=== PATIENT | female | born 1985 | race Caucasian/White ===

== ENCOUNTER 2024-05-16 08:23 | Day surgery (SDC) | payer BC, SELFPAY ==
[2024-05-16] VITALS (21 sets, daily range): BP systolic 93–145; BP diastolic 66–100; PULSE 77–98; RESP 12–18; TEMP 36.1–36.5; O2SAT 87–98; BMI 40.4
[2024-05-16] MEDS: LACTATED RINGERS 1000 ML 1,000 ML 100 ML IV ×2 (08:30→13:36)
[2024-05-16] MEDS: SODIUM CHLORIDE 0.9 % (FLUSH) 10 ML SYRINGE IVF ×2 (08:43→21:12)
[2024-05-16 08:50] LABS: Ur HCG Qualitative* Negative (Negative)
[2024-05-16 09:15] LABS: Hemoglobin* 14.1 gm/dL (12.0-16.0)
--- NOTE | 2024-05-16 10:06 | W.ANESCHARGE ---
Anesthesia Charges Start Date/Time Anesthesia Start Date: 05/16/24 Anesthesia Start Time: 11:51 Stop Date/Time Anesthesia Stop Date: 05/16/24 Anesthesia Stop Time: 14:33
--- NOTE | 2024-05-16 12:07 | W.PM.H&PU ---
History & Physical Update History & Physical Update H&P Reviewed and patient assessed: No changes noted
[2024-05-16] MEDS: CEFAZOLIN 1 GM inj 3 GM IVP (12:09)
--- NOTE | 2024-05-16 12:35 | W.PM.NB ---
Nerve Block Nerve Block Time Seen by Provider: 12:00 Date Seen: 05/16/24 Type of block requested by surgeon for post-operative analgesia: TAP Side: bilateral Time out performed: Yes Verification of patient name: Yes Verification of date of : Yes Site marking: site marked Name of person performing procedure: Serjio Continuous monitoring Was continuous monitoring of O2 sat, B/P, monitoring engineer, recorded every 15 minutes?: Yes Procedure Checklist: sterile prep, needles and gloves Ultrasound guided. Images saved: Yes Medications given in 5ml increments after negative aspiration: Marcaine %: 0.25 mL: 30 Needle gauge: 20 and Exparel mL: 10 Patient tolerated procedure well: Yes Additional comments: Needle noted between internal oblique and transversus abdominus. Local spread visualized Block Charges Block Charge (with Pro Fee): TAP Bilateral Use of Ultrasound Machine for Block: Yes- US Guidance/pain block
[2024-05-16] MEDS: FLUORESCEIN 10% INJ 500 MG IVP (13:47)
[2024-05-16] MEDS: BUPIVACAINE 0.5% 30 ML INJECTION (14:04)
[2024-05-16] MEDS: KETOROLAC 30 MG/ML inj IVP ×2 (14:13→21:11)
--- NOTE | 2024-05-16 14:28 | W.ANESCHARGE ---
Anesthesia Charges Start Date/Time Anesthesia Start Date: 05/16/24 Anesthesia Start Time: 11:51 Stop Date/Time Anesthesia Stop Date: 05/16/24 Anesthesia Stop Time: 14:33
--- NOTE | 2024-05-16 14:54 | PM.PROC ---
Procedure Note Time Seen by Provider: 14:54 Date Seen: 05/16/24 Date of procedure: 05/16/24 Will [facility] bill your pro fee for this procedure?: Yes Procedure: Preoperative diagnosis: 38-year-old 2 para 2 loose endometriosis, chronic pelvic pain and dysmenorrhea unresponsive to Mirena IUD. Postoperative diagnosis: Same Procedure: IUD removal, Total laparoscopic hysterectomy, bilateral salpingo oophorectomy, diagnostic cystoscopy. Anesthesia: General endotracheal, local Surgeon: Keyanna Andre MD Assist: Paty Mayo MD Estimated blood loss: 75 mL. IV Fluid: 1450 mL Urine output: 400 mL Drains: Harper to gravity Specimen: Uterus and bilateral ovaries and fallopian tubes to pathology. Findings: On exam under anesthesia: The uterus was anteverted, approximately 8 week size, mobile without nodularity or masses palpable. Adnexa without mass or fullness palpable. On laparoscopy: Normal uterus, tubes and ovaries. Evidence of old endometriosis in the posterior cul-de-sac. No evidence of active endometriosis. Appendix, liver and gallbladder all appeared normal. Procedure: Delma was taken to the operating room where general anesthetic was found to be adequate. She was placed in the dorsal lithotomy position and an exam under anesthesia was performed with findings stated above. She was then prepped and draped in a normal sterile manner. A Harper catheter was placed. A bivalve speculum was placed in the vaginal canal. The IUD strings were easily visualized, grasped with a ring forceps and the IUD removed without difficulty. A long Allis clamp was placed on the anterior lip of the cervix, in the uterus sounded to 9 cm. A large VCare uterine manipulator was then placed. The Allis clamp and speculum were removed from the cervix. Attention was then turned to performing the laparoscopic portion of the procedure. All incisions were infiltrated with 0.50% Marcaine prior to incising the skin. A vertical, infraumbilical 1 cm incision was made. An 11 mm trocar was then placed under direct visualization. The abdomen was then insufflated with CO2 gas to a pressure of 15 mm of mercury. Two,, pelvic ports were then placed approximately 3-4 finger breaths medial to the ischial crests. The trocar in the RLQ = 5mm, LLQ = 11mm. These were placed under direct visualization. Attention was then turned to performing the hysterectomy. Both ureters were visualized in the normal position bilaterally. The left fallopian tube was grasped and the infundibulopelvic ligament cauterized and ligated using the power seal dissecting forceps. Sequential pedicles were then made toward the cornua and the tube in ovary removed at the cornua and placed in the posterior cul-de-sac. The right fallopian tube and ovary were removed in a similar manner and also placed in the posterior cul-de-sac. removed with sequential pedicles using the dissecting, PowerSeal blunt tip dissecting forceps. The left side of the hysterectomy was performed using the PowerSeal dissecting forceps. The 1st pedicles were starting with the broad ligament that was cauterized and and bisected. In sequence show pedicles were formed to divide the utero-ovarian ligament. Then sequential pedicles were made through the broad ligament. The posterior leaf of the broad ligament was then divided and sequential pedicles carried down to the level of the VCare cup. The anterior leaf of the broad ligament was then divided down to the level of the anterior aspect of the VCare cup and a bladder flap created. The uterine vessels were then skeletonized. The uterine vessels were then cauterized and divided. Then excess tissue was cleared over the top of the VCare cup using the dissecting forceps. The right side of the hysterectomy was then performed in a similar manner. The Ligasure Valleylab pen with the spatula attachment was then used to perform the colpotomy incising around the VCare cup. The uterus, tubes and ovaries were removed via the vaginal canal and a glove with 2 Ray-Starla sponges was replaced in the vagina to maintain insufflation The vaginal cuff was then reapproximated using 2-0 V lock suture in a running manner. All the pedicles and vaginal cuff were then closely visualized and hemostasis obtained with bipolar cautery using the PowerSeal dissecting forceps or the Valleylab pen with the spatula. The the uterus was removed from the vaginal canal and sent to pathology. The Harper catheter was briefly removed. A diagnostic cystoscopy was performed using normal saline as the insufflation medium. The dome of the bladder was noted to be without injury and no evidence of any sutures from the vaginal cuff causing injury. Normal urine flow was noted through both ureteral orifices. Fluorescein IV was used to visualize the urine more easily. The Harper catheter was then replaced. Attention was then returned to the abdomen where hemostasis was verified. Bebe was applied to the vaginal cuff. The CO2 pressure decreased to 8mmHG and hemostasis verified. The fascia in the LLQ incision was approximated with 0-Vicryl suture using the Hawk Moreland fascial closure device. This was closed under direct visualization with the laparoscope. The fascia in the umbilical incision was reapproximated using 0 Vicryl on a UR 6 needle. All trocars were removed under direct visualization. CO2 gas was allowed to escape the infraumbilical port prior to its removal. All skin incisions were re-approximated using 4-0 Monocryl in a running subcuticular manner, Exofin skin adhesive gel and adhesive bandages placed. The patient tolerated this procedure well. Sponge, lap and instrument counts were correct x2 at the end of the procedure and the patient was taken to the recovery area in stable condition. The patient received 3gm IV ancef prior to the start of the procedure.
--- NOTE | 2024-05-16 19:29 | PC.NURSE ---
Arrived on the floor this afternoon after 1500. 3 lap sites CDI with glue... the patient reports no pain... post op routine continues until 2129... VS noted to be hypertensive, O2 on RA, HR upper 90's. SCDS to bilateral calfs, ice pack to medial abdomen. TOlerating a regular diet with no N/V. Has not passed gas, pires is patent and draining. Call light within reach. Belinda ALVARADO BSN
[2024-05-16] MEDS: OXYCODONE 5 MG TABLET PO (20:31)
[2024-05-16] MEDS: ACETAMINOPHEN 325 MG TABLET 650 MG PO (20:32)
[2024-05-17] MEDS: KETOROLAC 30 MG/ML inj IVP (02:48)
[2024-05-17] MEDS: OXYCODONE 5 MG TABLET PO ×2 (02:49→06:23)
[2024-05-17] MEDS: ACETAMINOPHEN 325 MG TABLET 650 MG PO (02:49)
[2024-05-17 03:00] VITALS: BP 112/71; PULSE 67; RESP 18; TEMP 36.3; O2SAT 96
--- NOTE | 2024-05-17 05:55 | PC.NURSE ---
End of shift [id number]: Pleasant and cooperative with cares. pain well managed with current regimen. 3 lap sites to abdomen secured with glue and free of any signs or symptoms of infections. Harper catheter patent, draining clear urine that is bright yellow in color due to dye injected during surgery. Denies any nausea or vomiting, tolerating food and fluids well. Patient passing flatus.
[2024-05-17 06:49] LABS: Hemoglobin* 13.2 gm/dL (12.0-16.0)
[2024-05-17 07:53] VITALS: BP 122/81; PULSE 75; RESP 16; TEMP 36.7; O2SAT 97
[2024-05-17] MEDS: SERTRALINE 50 MG TABLET PO (07:58)
--- NOTE | 2024-05-17 08:03 | PM.GYNDS1 ---
DS: Providers Provider Time Seen by Provider: 08:03 Date Seen: 05/17/24 Date of admission: 05/16/2024 Primary care physician: Not a Local Provider Admitting Clinician: Keyanna Andre MD Attending Physician on discharge: Keyanna Andre MD Date of Discharge: 05/17/24 DS: Diagnosis Discharge Diagnosis (1) Status post laparoscopic hysterectomy: Status: Acute Problem details: with bilateral salpingo-oophorectomy LEGUILLON DEBEADER-Discharge Summary Hospital Course Hospital Course Narrative: Delma is a 38 year old admitted on 05/16/2024 for scheduled total laparoscopic hysterectomy with bilateral salpingo oophorectomy and diagnostic cystoscopy to treat endometriosis and chronic pelvic pain. Indication for surgery: Endometriosis, chronic pelvic pain and severe dysmenorrhea. Intraoperative findings were notable for evidence of old endometriosis, no evidence of active endometriosis otherwise normal uterus, tubes and ovaries. She had an uncomplicated surgery. Postoperative course has been uneventful. Vitals have been stable. She has remained afebrile. Today, on postoperative day 1, she reports the pain is well controlled. She has been able to ambulate Without difficulty. She is tolerating regular diet. She is passing flatus. Harper catheter has been removed, and she is voiding without difficulty. Time Spent with Patient Time attestation: Total time spent providing and/or coordinating discharge services: LEGUILLON DEBEADER - Exam Physical Exam: Vital signs: Temp Pulse Resp BP Pulse Ox O2 Del Method 98.0 F 75 16 122/81 97 Room Air 05/17/24 07:53 05/17/24 07:53 05/17/24 07:53 05/17/24 07:53 05/17/24 07:53 05/17/24 07:53 Narrative: General: Pleasant, , well groomed woman in no acute distress. Vital signs: Included in her electronic medical record Heart: Regular rate and rhythm without gallop, rub or murmur. Chest: Clear to auscultation bilaterally. Abdomen: Soft, mildly tender throughout consistent with her postoperative state. Guarding or rebound. No CVA or flank tenderness. Normal bowel sounds throughout Incisions: All clean, dry and intact with sutures and skin adhesive gel. Extremities: SCDs in place LEGUILLON DEBEADER - DS: Data Data Completed and Pending Labs on day of discharge: Labs from last 24 hours 05/17/24 05/16/24 05/16/24 06:08 09:09 08:27 Hgb 13.2 14.1 Urine HCG, Qual Negative Blood Type O Positive Antibody Screen NEGATIVE Procedures Procedures: Procedures Operation Date: 05/16/24 09:45 Actual Procedure Side Surgeon p Total Laparoscopic Hysterectomy, Bilateral Salpingo-Oophorectomy, Diagnostic Cystoscopy, Mirena Intra-Uterine Device Removal Keyanna Andre MD Discharge Plan Discharge Disposition: Home, Self-Care Discharging Surgeon: Keyanna Andre Follow-Up Appointment: Dr. Andre, [facility], June 04 @ 10:15 am Prescriptions: New docusate sodium 100 mg Capsule 100 mg PO BID PRN (Reason: Constipation) Qty: 100 0RF oxycodone 5 mg Tablet 5 mg PO 3XD PRN (Reason: Moderate Pain) Qty: 20 0RF estradiol 0.1 mg/24 hr patch semiweekly 1 patch transdermal 2XW Qty: 24 3RF Rx Instructions: apply 1 patch for 3 days alternating with 1 patch for 4 days each week. ibuprofen 600 mg tablet 600 mg PO QID PRNQty: 30 0RF Continued vitamin B complex Tablet 1 tab PO QDAY sertraline 50 mg tablet 50 mg PO QDAY Discontinued Mirena 21 mcg/24 hr (8 yrs) 52 mg intrauterine device 1 device intrauterine ONCE Rx Instructions: as a single dose Activity Level: Other Discharge Diet: Regular Patient Instructions: Laparoscopic Hysterectomy (DC) Additional Instructions: ACTIVITY RESTRICTIONS: Nothing vaginally for 6 weeks: no tampons/intercourse No driving while taking narcotic pain medication during the day. 1-2 weeks. Lifting restriction: Maximum of 20 pounds for 4 weeks. High impact or core exercises: 4 weeks. Submerge the incisions in water (bath/pool/tohmas): 2 weeks. Off of work/school for a minimum of 4 weeks NO RESTRICTIONS for: Walking Going up/down stairs Showering Being a passenger in a motor vehicle Symptoms to report to your doctor Bleeding that is red, like a moderate period Passing clots larger than the size of a golf ball Pain not relieved by prescribed medication Fever above 100.4 degrees Fahrenheit A foul vaginal odor Decrease in urination or painful, frequent urinating Chest pain Shortness of breath Tenderness or pain with redness and/swelling in the calf(s) of your leg Follow-up Appointments: 1. [facility] 2-3 weeks for an incision check. 2. A 6 week postop visit to verify that the vaginal cuff is well-healed. Forms: Work/School Release Follow-up: Keyanna Andre MD [Staff Physician] - 06/04/24 10:15 am Provider,Not a Local [Primary Care Provider] - Discharge Orders: Discharge Order (Routine); Ordered 05/17/24 Ordered By: Keyanna Andre
[2024-05-17] MEDS: IBUPROFEN 600 MG TABLET PO (09:22)
--- NOTE | 2024-05-17 12:25 | PC.NURSE ---
Discharge: The patient discharged home with her . She was educated regarding post op infection S/S, activity, lifting restriction and education regarding transdermal patch for hormone replacement. All questions were answered. Belinda ALVARADO BSN
== END 2024-05-17 11:51 | disposition home or self-care (01) ==
LOC: OR 08:25 → MEDSURG 08:29
PROVIDERS: Visit Provider Obstetrics & Gynecology
PROC: 0UT94ZZ Resection of Uterus, Percutaneous Endoscopic Approach (ICD-10-PCS; CPT 58571; principal; 2024-05-16 09:45)
DX: N94.6 Dysmenorrhea, unspecified (principal); R10.2 Pelvic and perineal pain; G89.29 Other chronic pain; D25.1 Intramural leiomyoma of uterus; G89.18 Other acute postprocedural pain
CPT/HCPCS: 58571; 58301; 00840; 36415; 64488; 76942; 81025; 85018; 86850; 86900; 86901; 88307; A9270; C9290; J0330; J0665; J0690; J1100; J1170; J1630; J1885; J2250; J2405; J2704; J3010; J3490; J7120

== ENCOUNTER 2024-09-26 09:25 | Outpatient (CLI) | payer BC, SELFPAY | END 2024-09-26 09:26 | disposition home or self-care (01) | LOC: NFLDREF 09-27 05:14 | PROVIDERS: Visit Provider Nurse Practitioner Family | DX: R19.7 Diarrhea, unspecified (principal) | CPT/HCPCS: 87045; 87046; 87329; 87427; 87493 ==

== ENCOUNTER 2025-03-08 14:27 | Outpatient (CLI) | payer BC, SELFPAY | END 2025-03-08 14:28 | disposition home or self-care (01) | PROVIDERS: Visit Provider Family Medicine | DX: R00.2 Palpitations (principal); R25.1 Tremor, unspecified; Z13.6 Encounter for screening for cardiovascular disorders; Z13.21 Encounter for screening for nutritional disorder | CPT/HCPCS: 80053; 80061; 82607; 84443 ==

== ENCOUNTER 2025-03-11 04:24 | Emergency (ER) | payer BC, SELFPAY ==
[2025-03-11] VITALS (25 sets, daily range): BP systolic 105–131; BP diastolic 70–94; PULSE 67–84; RESP 0–20; TEMP 36.7–36.8; O2SAT 93–98; BMI 41.2
--- OUTSIDE RECORDS SUMMARY | 2025-03-11 04:27 | XMS_ITS | Encounter Summary ---
Author Organization [facility] Address [address] [place] [address]. [place] [address] Care Team Providers Care Chief Deputy Sheriff Name Role Phone [facility] Primary Care Provider Mayte Pakrer NP Unavailable Unavailable Coral Brito APRN [employer] SALESPERSON Unavailable [phone] Coral Brito APRN [employer] SALESPERSON Primary Care Provider Encounter Details Date Type Department Care Team (Late st Contact Info) Description 01/20/2024 My[facility] Medical Advice [address] [id number] Patricia Crabtree MA Social History Tobacco Use Types Packs/Day Years Used Date Smoking Tobacco: Never Passive Smoke Exposure: Never Smokeless Tobacco: Never Alcohol Use Standard Drinks/Week Comments Yes 0 (1 standard drink = 0.6 oz pur e alcohol) Social Connection and Isolat ion Panel [NHANES] Answer Date Recorded In a typical week, how many times do you talk on the phone with family, friends, or neighbors? Twice a week 08/02/2023 How often do you get togethe r with friends or relatives? Twice a week 08/02/2023 How often do you attend chur ch or jainism services? Never 08/02/2023 Do you belong to any clubs o r organizations such as anglican groups, unions, fraternal or athletic groups, or school groups? Yes 08/02/2023 How often do you attend meet ings of the clubs or organizations you belong to? More than 4 times per year 08/02/2023 Are you , , di vorced, , never , or living with a partner? 08/02/2023 AUDIT-C Answer Date Recorded Q1: How often do you have a drink containing alc ohol? 2-4 times a month 08/02/2023 Q2: How many drinks containi ng alcohol do you have on a typical day when you are drinking? 5 or 6 08/02/2023 Q3: How often do you have si x or more drinks on one occasion? Weekly 08/02/2023 PHQ-2 Answer Date Recorded PHQ-2 Score 2 08/03/2023 [facility] - Occupational Stress Questionnaire Answer Date Recorded Do you feel stress - tense, restless, nervous, or anxious, or unable to sleep at night because your mind is troubled all the time - these days? Only a little 08/02/2023 Exercise Vital Sign Answer Date Recorde d On average, how many days pe r week do you engage in moderate to strenuous exercise (like a brisk walk)? 0 days 08/02/2023 On average, how many minutes do you engage in exercise at this level? 0 min 08/02/2023 Adolescent Education Answer Date Record ed Getting School Help Needed Not on file 07/02 Food Insecurity Answer Date Recorded Within the past 12 months, d id you worry that your food would run out before you got money to buy more? No 08/02/2023 Within the past 12 months, d id the food you bought just not last and you didn t have money to get more? No 08/02/2023 Housing Stability Answer Date Recorded Do you have housing? (Housin g is defined as stable permanent housing and does not include staying outside in a car, in a tent, in an abandoned building, in an overnight halfway, or couch-surfing.) Yes 08/02/2023 Are you worried about losing your housing? No 08/02/2023 Financial Resource Strain Answer Date R ecorded Within the past 12 months, h ave you or your family members you live with been unable to get utilities (heat, electricity) when it was really needed? No 08/02/2023 Transportation Needs Answer Date Record ed Within the past 12 months, h as lack of transportation kept you from medical appointments, getting your medicines, non-medical meetings or appointments, work, or from getting things that you need? No 08/02/2023 Interpersonal Safety Answer Date Record ed Do you feel physically and e motionally safe where you currently live? Yes 08/03/2023 Within the past 12 months, h ave you been hit, slapped, kicked or otherwise physically hurt by someone? No 08/03/2023 Within the past 12 months, h ave you been humiliated or emotionally abused in other ways by your partner or ex-partner? No 08/03/2023 Comments No Sex and Gender Information Value Date Recorded Sex Assigned at Female 04/13/2022 7:18 AM CDT Legal Sex Female 4:37 PM CDT Gender Identity Female 04/13/2022 7:18 AM CDT Sexual Orientation Straight 04/13/2022 7: 18 AM CDT documented as of this encounter Plan of Treatment Not on file documented as of this encounter Visit Diagnoses Not on filedocumented in this encounter Additional Health Concerns Assessment Noted Time PHQ-9 Depression Total Score: 2 04/23/20 22 11:06 AM CDT documented as of this encounter Care Teams Chief Deputy Sheriff Relationship Specialty Start Date End Date Clinic - [address] [address] PCP - General 04/20/22 03/27/24 Coral Brito APRN [employer] SALESPERSON [address] [place] [id number] PCP - General Family Medicine 03/28/24 Mayte Parker NP Assigned PCP 11/03/23 01/30/24 Coral Brito APRN [employer] SALESPERSON [address] [place] [id number] Assigned PCP 01/31/24 documented as of this encounter
--- OUTSIDE RECORDS SUMMARY | 2025-03-11 04:27 | XMS_ITS | Clinical Summary ---
Author Organization [employer] [facility] Address [address] [place] [address] Care Team Providers Care End Worker Name Role Phone Huey Sandra DO Primary Care Provider Vida james Allergies No known active allergies Medications ibuprofen (MOTRIN IB) 200 mg tabletIndicatio ns: (normal spontaneous vaginal delivery) (HC) Take 3 tablets by mouth every 6 hours if needed for Other (Specify) (for uterine cramping). Take with food. 100 tablet 9 Active acetaminophen (TYLENOL) 325 mg tabletIndicatio ns:Endometriosi s Take 1-2 Tablets (325-650 mg) by mouth every 4 hours if needed (mild pain). Max acetaminophen dose: 4000mg in 24 hrs. 100 Tablet 1 Active ibuprofen (ADVIL; MOTRIN) 200 mg tabletIndicatio ns:Endometriosi s Take 2-4 Tablets (400-800 mg) by mouth every 6 hours if needed for Pain (use as main pain medication, up to 3200mg in 24 hours). 100 Tablet 1 Active oxyCODONE (ROXICODONE) 5 mg immediate release tabletIndicatio ns:Endometriosi s Take 1-2 Tablets (5-10 mg) by mouth every 4 hours if needed for Pain. 5 Tablet 10/05/2021 10:12 AM PROCUREMENT CONSULTANT 1 Active Hospital, Clinic, or Other Facility Administered Medication Ordered Dose Route Frequency Start Date End Date Status levonorgestrel intrauterine device (MIRENA) 1 DeviceIndications:Encounter for contraceptive management, unspecified type 1 Device IU Q 5 YEARS 09/26/2019 Active Active Problems Problem Noted Date Diagnosed Date (normal spontaneous vaginal delivery) 08/20 GDM, class A2 07/20/2019 Supervision of other normal , antepartu m 01/02/2019 Overview (08/17/2019): 33 y.o. AMA Medical concerns: History of GDM, history of Kidney stone last , endometriosis Early GTT indicated: BMI >25 or >23 in Americans and history of gestational diabetes H/O vag delivery X 1 12/31/16 [place] (GDM) Genetic screening: reviewing information BMI:38.36 Up to 15# Recommended wt gain Write smoker only if a smoker, otherwise erase Ultrasound findings: scheduled Flu vaccine: advised Pertussis Vaccine: Peds: undecided : Victor Manuel Dilated renal pelvis on BPP 08/17/19; should notify NICU at delivery and will likely need US before discharge for baby's kidney per MPP Symptomatic cholelithiasis 07/21/2017 Overview (07/21/2017): Added automatically from request for surgery [id number] Gallstones and inflammation of gallbladder without obstruction 06/03/2017 Endometriosis, site unspecified 09/15/2010 Overview (09/15/2010): Very well controlled right now. Pelvic pain Resolved Problems Problem Noted Date Diagnosed Date Resolved Date Vaginal delivery 12/31/2016 07/22/2017 Gestational diabetes mellitu s (GDM) affecting , antepartum 11/01/2016 07/22/2017 Encounter for supervision of normal first in first trimester 06/01/2016 07/22/2017 Overview (11/01/2016): 31 y.o. Hx laparoscopy for endometriosis Gestational DM Flu Shot: 07-13-16 Immunizations Immunization Administration Dates Next Due COVID-19 vaccine (Moderna 100mcg/0.5mL) PF, MDV 03/13/2021,02/06/2021 Influenza, IIV3 (Age >=3 years) 09/15/2010 Influenza, IIV4 08/28/2021, 9,07/22/2017,07/13 Meningococcal Vaccine (Menomune) 04/10/2002 Tdap 06/08/2019,11/01/2016,09/15/2010 Family History Medical History Relation Name Comments Good Health Brother Good Health Daughter Good Health Father Alcoholism Maternal Grandfather Cancer-breast Maternal Grandmother Hypertension Mother Thyroid Disease Mother Alcoholism Paternal Grandfather Diabetes Paternal Grandfather Good Health Paternal Grandmother Good Health Sister Relation Name Status Comments Brother Alive Daughter Alive Father Alive Maternal Grandfather (Age ?) ? Maternal Grandmother (Age 85 yrs ) ? Mother Alive Paternal Grandfather Alive Paternal Grandmother Alive Sister Alive Social History Tobacco Use Types Packs/Day Years Used Date Smoking Tobacco: Never Smokeless Tobacco: Never Tobacco Cessation:Counseling Given: Yes Alcohol Use Standard Drinks/Week Comments Never 0 (1 standard drink = 0.6 oz pur e alcohol) PHQ-2 Answer Date Recorded PHQ-2 TOTAL SCORE 0 03/13/2021 Social Connections Answer Date Recorded Frequency of Communication with Friends and Fami ly Not on file 09/30/2021 Financial Resource Strain Answer Date R ecorded Difficulty of Paying Living Expenses Not on file 09/30/2021 Difficulty of Paying Living Expenses Not on file 09/30/2021 Comments No Sex and Gender Information Value Date Recorded Sex Assigned at Not on file Legal Sex Female 6:57 AM PROCUREMENT CONSULTANT Gender Identity Not on file Sexual Orientation Not on file 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 file Not on file Not on reyna e Obstetrics History Para Term AB IAB SAB Ectopic Multiple Livin g Live Births 2 2 2 0 0 0 0 0 0 2 2 Date Outcome GA Total Labor Labor/2nd/3rd Weight Sex Type Anes PTL Kristie A1 A5 Name Clin 2016 Term 39w 0d 3.06 kg (6 lb 11.9 oz) F Vag None Livin g 9 9 HALLOR AN,BG DELMA Complications:None Delivery Location:[facility] 2018 Term 38w 6d 3.86 kg (8 lb 8 oz) M Local N Livin g Complications:None Comments:Born en caul Comments And one step daughter Last Filed Vital Signs Vital Sign Reading Time Taken Comments Blood Pressure 108/68 11/12/2021 3:18 PM PROCUREMENT CONSULTANT Pulse 79 10/05/2021 11:04 AM PROCUREMENT CONSULTANT Temperature 36.5 C (97.7 F) 10/05/2021 11:04 AM PROCUREMENT CONSULTANT Respiratory Rate 16 10/05/2021 11:0 4 AM PROCUREMENT CONSULTANT Oxygen Saturation 95% 10/05/2021 11: 04 AM PROCUREMENT CONSULTANT Inhaled Oxygen Concentration - - Weight 100.5 kg (221 lb 9.6 oz) 11/12/2021 3:18 PM PROCUREMENT CONSULTANT Height 160 cm (5' 3) 10/05/2021 6:25 AM PROCUREMENT CONSULTANT Body Mass Index 39.25 10/05/2021 6:25 AM PROCUREMENT CONSULTANT Plan of Treatment Health Maintenance Due Date Last Done Comments Hepatitis B series for 19+ (1 of 3 - 19+ 3-dose series) 2002 BMI (ht and wt on same day) for age 18+ 03/13/2022 03/13/2021, 09/26/2019, 06/08/2019, Additional history exists Depression screening for age 12+ 03/13/2022 03/13/2021, 03/13/2021, 01/02/2021, Additional history exists Pap test for age 21-65 02/03/2024 9, 02/02/2019, 01/19/2016, Additional history exists COVID-19 vaccine series ( season) 2024 03/13/2021, 03/13/2021 (Completed outside of [facility]), 02/06/2021 Influenza Vaccine (Season Ended) 2025 08/28/2021, 06/22/2019, 07/22/2017, Additional history exists Tetanus booster 06/08/2029 06/08/2019, 10/11, 09/15/2010 HIV for age 15-65 Completed 01/03/2019, 06/01/2016 Hepatitis C screening for age 18-79 Completed 01/03/2019 Tdap Completed 06/08/2019, 10/11, 09/15/2010 Pneumococcal series for age 6-49 Aged Out No longer eligible based on patient's age to complete this topic Procedures Procedure Name Priority Date/Time Associated Diagnosis Comments GAS PUMPER THIN PREP PAP SCREEN IMAGED Routine 02/02/2019 11:00 AM CDT Screening for malignant neoplasm of cervix ANTI HIV 1/2 Routine 01/03/2019 8:28 AM CDT Confirm cardiac activity using ultrasound (HC) ANTI HCV Routine 01/03/2019 8:28 AM CDT Confirm cardiac activity using ultrasound (HC) from Last 3 Months or Most Recently Relevant to Health Maintenance Results * GAS PUMPER THIN PREP PAP SCREEN IMAGED (02/02/2019 11:00 AM CDT) Case Report Gynecologic Cytology Report Case: [id number] Authorizing Provider: Elsie Stiles DO Collected: 02/02/2019 1100 Ordering Location: [facility] Received: 02/02/2019 1318 [facility] First Screen: Scarlett Stoddard Specimen: GAS PUMPER ThinPrep Vial Screening, Cervical 02/12/2019 2:25 PM CDT [facility] INTERPRETATION/ RESULT NEGATIVE FOR INTRAEPITHELIAL LESION OR MALIGNANCY (NIL) (none) 02/12/2019 2:25 PM CDT [facility] at 1425 CDT SPECIMEN ADEQUACY Satisfactory for evaluation No endocervical component seen 02/12/2019 2:25 PM CDT [facility] HPV REQUEST HPV and PAP 02/12/2019 2:25 PM CDT [facility] Date of LMP 02/12/2019 2:25 PM CDT [facility] Last Pap Date 01/19/16 02/12/2019 2:25 PM CDT [facility] Last Pap Result NIL 9 2:25 PM CDT [facility] Abnormal Pap or [place] Bx in last 5 years No 02/12/2019 2:25 PM CDT [facility] Menstrual Status 02/12/2019 2:25 PM CDT [facility] [place] Bx Done Today No 02/12/2019 2:25 PM CDT [facility] Additional Information None given 02/12/2019 2:25 PM CDT [facility] Automated Review Successful 02/12/2019 2:25 PM CDT [facility] Comment:Specimen processed s uccessfully by automated manager trust device, [employer] Imaging System, [employer] ANCILLARY TESTING GAS PUMPER HPV Ordered, Please see separate report 02/12/2019 2:25 PM CDT [facility] Note The pap test is a screening technique, not a diagnostic procedure. It is used primarily to screen for squamous cancers and precursor lesions. Published studies have shown that it is subject to both false negative and false positive results. The pap test should not be used as the sole means to diagnose or exclude pre-malignant and malignant lesions. Cytology is screened and interpreted at [facility] - [address], [place] [address] and [facility] - [address]; [place] [address] and [facility] - [address]; [place] [address] and [facility] [address]; [place] [address] 02/12/2019 2:25 PM CDT [facility] Other (Cervical) Non-Blood / Unknown 02/02/2019 11:00 AM CDT 02/02/2019 1:18 PM CDT Elsie Stiles DO PATHOLOGY/CYTOLOGY Final Resul t [facility] [address] [place] [address], [place] * ANTI HCV (01/03/2019 8:28 AM CDT) HEPATITIS C ANTIBODY Non-React boom Non-React boom 01/03/2019 2:20 PM CDT [facility] TR[facility] Comment:Antibodies to HCV no t detected; does not exclude the possibility of exposure to HCV. Blood BLOOD SPECIMEN / Unknown Venipuncture / Unknown 01/03/2019 8:28 AM CDT 01/03/2019 8:31 AM CDT us Elsie Stiles DO SEND OUTS Final Result Performing Organization Address City/[facility]/ZIP Co de Phone Number [facility] [address] [place] [address], * ANTI HIV 1/2 (01/03/2019 8:28 AM CDT) HIV-1/HIV-2 ANTIBODY Non-Reacti ve Non-Reacti ve 01/03/2019 2:22 PM CDT [facility] Comment:HIV-1 p24 and HIV-1/ HIV-2 Ab not detected. Blood BLOOD SPECIMEN / Unknown Venipuncture / Unknown 01/03/2019 8:28 AM CDT 01/03/2019 8:31 AM CDT Elsie Stiles SEND OUTS Final Result Performing Organization Address [facility] Co de Phone Number [facility] [address] [place] [address], from Last 3 Months or Most Recently Relevant to Health Maintenance Insurance [facility] NON-GA-ITS Advance Directives * Full Code (Latest Code Status on File) Date Activated Date Inactivated Comments 10/05/2021 6:08 AM 10/05/2021 1:45 PM Question Answer Comments Code Status Discussion: Reviewed Preferences * Full Code Date Activated Date Inactivated Comments 08/20/2019 7:59 AM 08/21/2019 4:52 PM Question Answer Comments Code Status Discussion: Not Discussed * Full Code Date Activated Date Inactivated Comments 07/27/2017 8:39 AM 07/27/2017 3:55 PM * Full Code Date Activated Date Inactivated Comments 12/31/2016 6:00 PM 01/02/2017 2:59 PM * Full Code Date Activated Date Inactivated Comments 12/31/2016 8:54 AM 12/31/2016 6:00 PM Question Answer Comments Code Status Discussion: Not Discussed Care Teams End Worker Relationship Specialty Start Date End Date Huey Sandra DO PCP - General 04/15/09
--- OUTSIDE RECORDS SUMMARY | 2025-03-11 04:27 | XMS_ITS | Clinical Summary ---
Author Organization [place] Address [address] [place] [id number] Care Team Providers Care Commercial Loan Coordinator Name Role Phone Coral Brito APRN, CNP Unavailable [phone] Coral Brito APRN, CNP Primary Care Provider Allergies No known active allergies Medications levonorgestrel (MIRENA) 20 MCG/DAY IUD 1 each by Intrauterine route once Active ibuprofen (ADVIL/MOTRIN) 200 MG tablet Take 400-800 mg by mouth as needed 1 Active sertraline (ZOLOFT) 50 MG tabletIndicatio ns:Anxiety and depression Take 1 tablet (50 mg) by mouth daily 90 tablet 4 Active Active Problems Problem Noted Date Diagnosed Date History of gestational diabetes 03/23/2022 Endometriosis 06/10/2002 Immunizations Immunization Administration Dates Next Due Influenza (IIV3) PF 09/15/2010 Influenza Vaccine >6 months,quad, PF ,06/22/2019,07/22/2017,2015 Meningococcal (Menomune ) 04/10/2002 TDAP (Adacel,Boostrix) 06/08/2019,11/01/2016,04/2010 Family History Medical History Relation Comments Depression Father Breast Cancer Maternal Grandmother Hypertension Mother Thyroid Disease Mother Thyroid Disease Other 1 Thyroid Disease Other 2 Diabetes Paternal Grandfather Diabetes Paternal Grandmother Relation Status Comments Father Maternal Grandmother Mother Other 1 Other 2 Paternal Grandfather Paternal Grandmother Social History Tobacco Use Types Packs/Day Years [...] often do you attend chur ch or sabianist services? Never 08/02/2023 Do you belong to any clubs o r organizations such as zoroastrian groups, unions, fraternal or athletic groups, or [...] Answer Date Recorded PHQ-2 Score 2 08/03/2023 [facility] Answer Date Recorded [...] Answer Date Recorded Do you have housing? (Sim gomez is defined as stable permanent housing and does not include staying outside in a car, in a tent, in an abandoned building, in an overnight custodial, or couch-surfing.) Yes 08/02/2023 Are you worried [...] Orientation Straight 04/13/2022 7: 18 AM CDT Last Filed Vital Signs Vital Sign Reading Time Taken Comments Blood Pressure 108/76 08/03/2023 6:56 AM CDT Pulse 79 08/03/2023 6:56 AM CDT Temperature 36.8 C (98.3 F) 08/03/2023 6:56 AM CDT Respiratory Rate 18 08/03/2023 6:56 AM CDT Oxygen Saturation 97% 08/03/2023 6:56 AM CDT Inhaled Oxygen Concentration - - Weight 110.7 kg (244 lb) 08/03/2023 6:56 AM CDT Height 161.3 cm (5' 3.5) 08/03/2023 6:56 AM CDT Body Mass Index 42.54 08/03/2023 6:56 AM CDT Plan of Treatment Health Maintenance Due Date Last Done Comments HEPATITIS B VACCINE (1 of 3 - 19+ 3-dose series) 2002 COVID-19 VACCINE (2023- season) 2024 03/13/2021, 02/06/2021 ANNUAL REVIEW OF HM ORDERS 08/03/2024 08/03/2023, YEARLY PREVENTIVE VISIT 08/03/2024 08/03/20, 04/23/2022, 03/13/2021 PHQ-2 (once per calendar year) 2024 08/03/2023, 04/23/2022, 04/23/2022, Additional history exists INFLUENZA VACCINE (Season Ended) 2025 08/28/2021, 06/22/2019, 07/22/2017, Additional history exists MAMMO SCREENING 09/03/2025 09/03/2023 DIABETES SCREENING 08/03/2026 08/03/2023, 04/23/2022 ADVANCE CARE PLANNING 04/23/2027 04/23/2022 HPV TEST 04/23/2027 04/23/2022 PAP 04/23/2027 04/23/2022 LIPID 08/03/2028 08/03/2023, 04/23/2022 DTAP/TDAP/TD VACCINE (4 - Td or Tdap) 06/08/2029 06/08/2019, 11/01/2016, 09/15/2010 ZOSTER VACCINE (1 of 2) 2033 MENINGITIS VACCINE Aged Out 04/10/2002 No longer eligible based on patient's age to complete this topic HEPATITIS C SCREENING Completed 04/23/2022, 019 HIV SCREENING Completed 04/23/2022, 01/03/2019 HPV VACCINE Aged Out No longer eligi ble based on patient's age to complete this topic PNEUMOCOCCAL VACCINE: PEDIATRICS (0 to 5 YEARS) AND AT-RISK PATIENTS (6 to 49 YEARS) Aged Out No longer eligible based on patient's age to complete this topic Procedures Procedure Name Priority Date/Time Associated Diagnosis Comments MA SCREENING BILATERAL W/ ABIMAEL Routine 09/03/2023 12:38 PM CARVER AND CHECKERER SPECIALS Encounter for screening mammogram for breast cancer COMPREHENSIVE METABOLIC PANEL Routine 08/03/2023 7:31 AM CDT Routine general medical examination at a health care facility LIPID REFLEX TO DIRECT LDL PANEL Routine 08/03/2023 7:31 AM CDT Screening for lipid disorders HIV ANTIGEN ANTIBODY COMBO Routine 04/23/2022 7:26 AM CDT Screening for HIV (human immunodeficiency virus) HEPATITIS C SCREEN REFLEX TO HCV RNA QUANT AND GENOTYPE Routine 04/23/2022 7:26 AM CDT Need for hepatitis C screening test GYNECOLOGIC CYTOLOGY Routine 04/23/2022 7:12 AM CDT Cervical cancer screening HPV HIGH RISK TYPES DNA CERVICAL Routine 04/23/2022 7:12 AM CDT Cervical cancer screening from Last 3 Months or Most Recently Relevant to Health Maintenance Results * MA Screen Bilateral w/Abimael (09/03/2023 12:38 PM CARVER AND CHECKERER SPECIALS) Anatomical Region Laterality Modality Breast Bilateral Mammography Impressions 09/05/2023 10:02 AM CARVER AND CHECKERER SPECIALS IMPRESSION: ACR BI-RADS Category 1: Negative RECOMMENDED FOLLOW-UP: Annual routine screening mammogram The results and recommendations of this examination will be communicated to the patient. Lewis Terrazas Narrative 09/05/2023 10:02 AM CARVER AND CHECKERER SPECIALS BILATERAL FULL FIELD DIGITAL SCREENING MAMMOGRAM WITH TOMOSYNTHESIS Performed on: 09/03/23 No comparisons were made when reading this study. Technique: This study was evaluated with the assistance of Computer-Aided Detection. Breast Tomosynthesis was used in interpretation. Findings: The breasts have scattered areas of fibroglandular density. There is no radiographic evidence of malignancy. us Mayte Keith LEACH CELL OPERATOR IMG MAMMOGRAPHY ORDERABLES Fi nal Result * (ABNORMAL) Lipid panel reflex to direct LDL Fasting (08/03/2023 7:31 AM CDT) Cholesterol 174 <200 mg/dL 08/03/2023 6:53 PM CDT [facility] Triglycerides 146 <150 mg/dL 08/03/2023 6:53 PM CDT [facility] Direct Measure HDL 40(L) >=50 mg/dL 08/03/2023 6:53 PM CDT [facility] LDL Cholesterol Calculated 105(H) <=100 mg/dL 08/03/2023 6:53 PM CDT [facility] Non HDL Cholesterol 134(H) <130 mg/dL 08/03/2023 6:53 PM CDT [facility] Blood BLOOD SPECIMEN / Unknown Venipuncture / Unknown 08/03/2023 7:31 AM CDT 08/03/2023 7:31 AM CDT Narrative [facility] - 08/03/2023 6:53 PM CDT Cholesterol Desirable: <200 mg/dL Triglycerides Normal: Less than 150 mg/dL Borderline High: 150-199 mg/dL High: 200-499 mg/dL Very High: Greater than or equal to 500 mg/dL Direct Measure HDL Female: Greater than or equal to 50 mg/dL Male: Greater than or equal to 40 mg/dL LDL Cholesterol Desirable: <100mg/dL Above Desirable: 100-129 mg/dL Borderline High: 130-159 mg/dL High: 160-189 mg/dL Very High: >= 190 mg/dL Non HDL Cholesterol Desirable: 130 mg/dL Above Desirable: 130-159 mg/dL Borderline High: 160-189 mg/dL High: 190-219 mg/dL Very High: Greater than or equal to 220 mg/dL us Mayte Parker NP LAB - BLOOD ORDERABLES Final Result [facility] [address] [facility], [address] [place] [address], [facility] [phone] * (ABNORMAL) Comprehensive metabolic panel (BMP + Alb, Alk Phos, ALT, AST, Total. Bili, TP) (08/03/2023 7:31 AM CDT) [facility] Sodium 139 135 - 145 mmol/L 08/03/2023 6:53 PM CDT [facility] Comment:Reference intervals for this test were updated on 07/05/2023 to more accurately reflect our healthy population. There may be differences in the flagging of prior results with similar values performed with this method. Interpretation of those prior results can be made in the context of the updated reference intervals. Potassium 4.1 3.4 - 5.3 mmol/L 08/03/2023 6:53 PM CDT [facility] Carbon Dioxide (CO2) 25 22 - 29 mmol/L 08/03/2023 6:53 PM CDT [facility] Anion Gap 10 7 - 15 mmol/L 08/03/2023 6:53 PM CDT [facility] Urea Nitrogen 7.8 6.0 - 20.0 mg/dL 08/03/2023 6:53 PM CDT [facility] Creatinine 0.74 0.51 - 0.95 mg/dL 08/03/2023 6:53 PM CDT [facility] GFR Estimate >90 >60 mL/min/1. 73m2 08/03/2023 6:53 PM CDT [facility] Calcium 9.0 8.6 - 10.0 mg/dL 08/03/2023 6:53 PM CDT [facility] Chloride 104 98 - 107 mmol/L 08/03/2023 6:53 PM CDT [facility] Glucose 113(H) 70 - 99 mg/dL 08/03/2023 6:53 PM CDT [facility] Alkaline Phosphatase 75 35 - 104 U/L 08/03/2023 6:53 PM CDT [facility] AST 30 0 - 45 U/L 08/03/2023 6:53 PM CDT [facility] Comment:Reference intervals for this test were updated on 03/21/2023 to more accurately reflect our healthy population. There may be differences in the flagging of prior results with similar values performed with this method. Interpretation of those prior results can be made in the context of the updated reference intervals. ALT 41 0 - 50 U/L 08/03/2023 6:53 PM CDT [facility] Comment:Reference intervals for this test were updated on 03/21/2023 to more accurately reflect our healthy population. There may be differences in the flagging of prior results with similar values performed with this method. Interpretation of those prior results can be made in the context of the updated reference intervals. Protein Total 7.4 6.4 - 8.3 g/dL 08/03/2023 6:53 PM CDT [facility] Albumin 4.5 3.5 - 5.2 g/dL 08/03/2023 6:53 PM CDT [facility] Bilirubin Total 0.5 <=1.2 mg/dL 08/03/2023 6:53 PM CDT [facility] Blood BLOOD SPECIMEN / Unknown Venipuncture / Unknown 08/03/2023 7:31 AM CDT 08/03/2023 7:31 AM CDT Mayte Parker LEACH CELL OPERATOR LAB - BLOOD ORDERABLES Final Result [facility] [address] [facility], [address] [address], [facility] [phone] * HIV Antigen Antibody Combo (04/23/2022 7:26 AM CDT) [facility] HIV Antigen Antibody Combo Nonreactive Nonreactive 04/24/2022 3:52 PM CDT [facility]EN DO Comment:HIV-1 p24 Ag & HIV-1 /HIV-2 Ab Not Detected Blood BLOOD SPECIMEN / Unknown Venipuncture / Unknown 04/23/2022 7:26 AM CDT 04/23/2022 7:26 AM CDT us Coral Brito APRN MILLING GENERAL SUPERINTENDENT LAB - BLOOD ORDERABLES Final Result [facility]END[facility]Prot[facility]Endo [address] [facility], [address] [phone] * Hepatitis C Screen Reflex to HCV RNA Quant and Genotype (04/23/2022 7:26 AM CDT) Hepatitis C Antibody Nonreactive Nonreactive 04/24/2022 3:52 PM CDT [facility]EN DO Blood BLOOD SPECIMEN / Unknown Venipuncture / Unknown 04/23/2022 7:26 AM CDT 04/23/2022 7:26 AM CDT Narrative [facility]END[facility] - 04/24/2022 3:52 PM CDT Assay performance characteristics have not been established for newborns, infants, and children. Coral Brito APRN MILLING GENERAL SUPERINTENDENT LAB - BLOOD ORDERABLES Final Result [facility]Prot[facility]Endo [address] [facility], [address] [phone] * Pap Screen with HPV - recommended age 30 - 65 years (04/23/2022 7:12 AM CDT) Interpretation Negative for Intraepithelial Lesion or Malignancy (NILM) 04/27/2022 12:15 PM CDT [facility] at 1215 CDT Comment Papanicolaou Test Limitations: Cervical cytology is a screening test with limited sensitivity, and regular screening is critical for cancer prevention. Pap tests are primarily effective for the diagnosis/prevent ion of squamous cell carcinoma, not adenocarcinoma or other cancers. 04/27/2022 12:15 PM CDT [facility] Specimen Adequacy Satisfactory for evaluation, endocervical/arroyo sformation zone component present 04/27/2022 12:15 PM CDT [facility] Clinical Information none 04/27/2022 12:15 PM CDT [facility] Reflex Testing Yes regardless of result 04/27/2022 12:15 PM CDT [facility] Previous Abnormal? No 04/27/2022 12:15 PM CDT [facility] Performing Labs The technical component of this testing was completed at [facility] 04/27/2022 12:15 PM CDT [facility] Brushing CERVIX UTERI STRUCTURE / Unknown Non-blood Collection / Unknown 04/23/2022 7:12 AM CDT 04/23/2022 7:56 AM CDT Coral Brito APRN, CNP LAB - BEAKER AP Final R esult Performing Organization Address City/State/[facility] Co de Phone Number [facility] Special[facility] [address] [facility], [address] [address], [facility] [phone] * HPV High Risk Types DNA Cervical (04/23/2022 7:12 AM CDT) Other HR HPV Negative Negative 04/29/2022 2:18 PM CDT [facility] HPV16 DNA Negative Negative 04/29/2022 2:18 PM CDT [facility] HPV18 DNA Negative Negative 04/29/2022 2:18 PM CDT [facility] FINAL DIAGNOSIS This patient's sample is negative for HPV DNA. This test was developed and its performance characteristics determined by the [facility], [facility]. It has not been cleared or approved by the FDA. The laboratory is regulated under CLIA as qualified to perform high-complexity testing. This test is used for clinical purposes. It should not be regarded as investigational or for research. METHODOLOGY: The Rosemarie Jessy [id number] system uses automated extraction, simultaneous amplification of HPV (L1 region) and beta-globin, followed by real time detection of fluorescent labeled HPV and beta globin using specific oligonucleotide probes. The test specifically identified types HPV 16 DNA and HPV 18 DNA while concurrently detecting the rest of the high risk types (31, 33, 35, 39, 45, 51, 52, 56, 58, 59, 66 or 68). COMMENTS: This test is not intended for use as a screening device for woman under age 30 with normal cervical cytology. Results should be correlated with cytologic and histologic findings. Close clinical followup is recommended. 04/29/2022 2:18 PM CDT [facility] Brushing CERVIX UTERI STRUCTURE / Unknown Non-blood Collection / Unknown 04/23/2022 7:12 AM CDT 04/28/2022 8:45 AM CDT Coral Brito APRN, CNP LAB - BLOOD ORDERABLES Final Result [facility] [address] [facility], [address] [place] [address], [facility] [phone] from Last 3 Months or Most Recently Relevant to Health Maintenance [place] Care Teams Commercial Loan Coordinator Relationship Specialty Start Date End Date Coral Brito APRN MILLING GENERAL SUPERINTENDENT [address] [place] [phone] PCP - General Family Medicine 03/28/24 Coral Brito APRN M[employer] GENERAL SUPERINTENDENT [address] [place] [id number] Assigned PCP 01/31/24
--- NOTE | 2025-03-11 04:39 | ED_ITS ---
HPI - General Adult General Chief complaint: Chest Pain Stated complaint: numbness in jaw left arm Time Seen by Provider: 03/11/25 04:39 History of Present Illness HPI narrative: CC: Left Jaw/ Shoulder Pain, Left Arm Numbness pt. woke around 0330 with symptoms. some chest discomfort. denies fevers, n/v, diarrhea. 39-year-old woman presenting to the emergency department with complaints of left face and left arm numbness. Last known well appears to have been about 10 30 wh en she went to bed last night. It is now 5:00 a.m. she did wake around 330 with above symptoms noted. Asked more about the chest discomfort but says that that seems to have been less the issue. Went to bed feeling well. No headache. No visual disturbance. No nausea. Maybe is experiencing a little bit of a feeling of weakness in the left hand. No recent fevers. No trauma. Related Data Home Medications ?Medication ?Instructions ?Recorded ?Confirmed vitamin B complex 1 tab PO QDAY 02/01/2403/11 Previous Rx's ?Medication ?Instructions ?Recorded estradiol 0.1 mg/24 hr semiweekly 1 patch transdermal 2XW #24 ea 05/16/24 transdermal patch ibuprofen 600 mg tablet 600 mg PO QID PRN #30 tabs 0 05/16/24 sertraline 50 mg tablet 50 mg PO QDAY #90 tabs 06/04 Allergies Allergy/AdvReac Type Severity Reaction Status Date / Time No Known Drug Allergies Allergy Verified 03/11/25 04:34 Review of Systems Status of ROS: Reports: 6 or more systems reviewed and unremarkable except as noted in History and below [facility] Medical History Gestational diabetes ?O24.419 - Gestational diabetes mellitus in , unspecified control (ICD-10) History of kidney stones ?Z87.442 - Personal history of urinary calculi (ICD-10) Body mass index [BMI] 40.0-44.9, adult ?Z68.41 - Body mass index [BMI] 40.0-44.9, adult (ICD-10) Anxiety and depression ?F41.9 - Anxiety disorder, unspecified (ICD-10) ?F32.A - Depression, unspecified (ICD-10) History of gestational diabetes ?Z86.32 - Personal history of gestational diabetes (ICD-10) Chronic left hip pain ?M25.552 - Pain in left hip (ICD-10) ?G89.29 - Other chronic pain (ICD-10) Endometriosis determined by laparoscopy ?N80.9 - Endometriosis, unspecified (ICD-10) Surgical History History of vaginal delivery (2017) Status post laparoscopic hysterectomy (05/16/24) ?Z90.710 - Acquired absence of both cervix and uterus (ICD-10) Status post laparoscopic cholecystectomy (~2016) ?Z90.49 - Acquired absence of other specified parts of digestive tract (ICD- 10) S/P laparoscopy with lysis of adhesions ?Z98.890 - Other specified postprocedural states (ICD-10) Status post right foot surgery (~01/2003) ?Z98.890 - Other specified postprocedural states (ICD-10) Family History Mother Stented coronary artery, Onset Age: 62 Hypothyroid Maternal Grandmother Breast cancer, Onset Age: 75 Paternal Grandfather Alcohol dependence Aunt Diabetes Hypothyroid Aunt Hyperthyroidism Father Throat cancer Social History Narrative: , 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 Tobacco: No, lifetime nonsmoker E-cigarettes: No Alcohol: Yes: 2 servings/3 months Illicit/recreational drugs: No Safety concerns at home or work: No Dietary restriction(s): None Exercise: Yes, cardio 2 times per week. What is your current living situation?: I presently have a place to live Problems where you live: no known problems In the past 12 months, utilities in danger of being shut off: no In past 12 months, lack of transportation kept you from medical appts, meetings, work, or getting things needed for daily living: no In the past 12 mos, have been you worried that your food would run out before you had money to buy more?: never true In the past 12 mos, the food you bought just didn't last and you didn't have money to buy more?: never true Smoking Status: Never smoker Second hand tobacco smoke exposure: No How often do you have a drink containing alcohol: monthly or less How many standard drinks containing alcohol do you have on a typical day: 3 or 4 How often do you have six or more drinks on one occasion: Never AUDIT-C Alcohol total score: 2 Non-prescribed substance use: denies use Caffeine: Yes How often does anyone, including family, friends and others, physically hurt you : never How often does anyone, including family, friends and others, insult or talk down to you: never How often does anyone, including family, friends and others, threaten you with harm: never How often does anyone, including family, friends and others, scream or curse at you: never Exam Narrative: Exam Narrative: Very pleasant. NAD. Breathing easily. Head is atraumatic. Pupils are 4 mm and equal appropriately reactive. Neck is supple. Subjective sensation of ?fuzziness? to palpation over the entire left side of her face. I do not see any rashes. No loss of motor with cranial nerves 2-12 looking to be intact as well. She has good strength in all extremities although with reassessment little later seems to have slightly diminished underwriter solicitation director strength in the left hand. Normal [id number]. No limb ataxia. Speaking fluidly. She does have soreness to palpation in the left trapezial musculature up into the neck a little bit but throughout the periscapular area as well on the left and then down to mid back perhaps. I do not see any swelling or erythema here. Sensation also described as able to feel light touch but it is off in the left arm. Heart in regular rate rhythm. Const: Vital Signs, click to edit/add: Vital Signs - 24 hr 03/11/25 04:32 03/11/25 04:40 03/11/25 05:02 Temperature 98.2 F Pulse Rate 78 Pulse Rate [Right Pulse Oximeter] 75 Respiratory Rate 18 20 Blood Pressure 115/86 Blood Pressure [Ri ght Upper Arm] 131/94 H Pulse Oximetry 98 98 98 Oxygen Delivery Me thod Room Air 03/11/25 05:15 03/11/25 05:32 03/11/25 06:02 Temperature 98.0 F Pulse Rate 75 77 Pulse Rate [Right Pulse Oximeter] Respiratory Rate 13 13 18 Blood Pressure 122/70 107/71 Blood Pressure [Ri ght Upper Arm] Pulse Oximetry 98 98 Oxygen Delivery Me thod 03/11/25 06:32 Temperature 98.0 F Pulse Rate 81 Pulse Rate [Right Pulse Oximeter] Respiratory Rate 13 Blood Pressure 111/81 Blood Pressure [Ri ght Upper Arm] Pulse Oximetry 97 Oxygen Delivery Me thod Documenting provider has reviewed patient's vital signs: yes Course Vital Signs Vital signs: Initial Vital Signs Respiratory Effort Normal, Spontaneous, Non-Labored 03/11/25 04:25 Respiratory Depth Normal 03/11/25 04:25 Respiratory Pattern Normal 03/11/25 04:25 Vital Signs Temperature 98.2 F 03/11/25 04:32 Pulse Rate 75 03/11/25 04:32 Respiratory Rate 18 03/11/25 04:32 Blood Pressure 131/94 H 03/11/25 04:32 Pulse Oximetry 98 03/11/25 04:32 Oxygen Delivery Method Room Air 03/11/25 04:32 Temperature 98.0 F 03/11/25 06:32 Pulse Rate 81 03/11/25 06:32 Respiratory Rate 13 03/11/25 06:32 Blood Pressure 111/81 03/11/25 06:32 Pulse Oximetry 97 03/11/25 06:32 Oxygen Delivery Method Room Air 03/11/25 04:32 Medications Administered Medications: Discontinued Medications Generic Name Dose Route Start Last Admin Trade Name Freq PRN Reason Stop Dose Admin Sodium Chloride 1,000 mls @ 1,000 mls/hr 03/11/25 05:36 03/11/25 06:51 0.9 % Sodium Chloride 1000 Ml IV 03/11/25 06:35 Infused .Q1H ONE Infusion Medical Decision Making MDM Narrative Medical decision making narrative: I wonder if this might be regional effect from what appears to be some significant musculoskeletal discomfort in the left periscapular upper back area. Though I can not very well explain facial symptoms. Mild symptoms in all. This combination though might require some imaging but probably not larger vascular CT. I have called to Stroke Neuro to discuss further. Neuromuscular disorder? 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 Place IV of normal saline. Monitor for further progression and potential need for intervention. On repeated reassessments symptoms have faded a little but still present. I have reviewed MRI images but pending Radiology read Medical Records Medical records reviewed: Yes I reviewed the patient's medical records Lab Data Lab results reviewed: Yes I reviewed the patient's lab results Labs: Lab Results 03/11/25 Range/Units 04:40 POC Troponin I 0.00 L (0.01-0.04) ng/ml ECG Data Attestation: I personally reviewed and interpreted this ECG as follows: (Normal sinus rhythm at a rate of 75. No ischemic changes evident. Nonpathologic Q-w ave in lead 3 ) Discharge Plan Discharge Clinical Impression: Musculoskeletal pain, Paresthesia Patient Disposition: Home, Self-Care Condition: Improved Additional Instructions: See handout on upper back exercises that I think might help your shoulder/back area. Also prescribing some cyclobenzaprine as a ?muscle relaxer? from [facility] if you like. Recommending follow-up with Neurology for persistent symptoms/workup. Your primary care can probably help you get an appointment. Relatively locally [facility] Neu[facility] is a larger group. Prescriptions: No Action vitamin B complex Tablet 1 tab PO QDAY sertraline 50 mg tablet 50 mg PO QDAY Qty: 90 3RF estradiol 0.1 mg/24 hr patch semiweekly 1 patch transdermal 2XW Qty: 24 3RF Rx Instructions: apply 1 patch for 3 days alternating with 1 patch for 4 days each week. ibuprofen 600 mg tablet 600 mg PO QID PRNQty: 30 0RF Follow Up/Referrals: Provider,Not a Local [Non-Staff, Family Practice] Stand Alone Forms: [facility] Info Instructions
--- NOTE | 2025-03-11 05:43 | CRLHL7_ITS ---
For Patients: As a result of the Century Cures Act, medical imaging exams and procedure reports are released immediately into your electronic medical record. You may view this report before your referring provider. If you have questions, please contact your health care provider. Indication: Left face and arm numbness. Technique: Multiplanar, multisequence MRI of the brain was performed without intravenous contrast. Comparison: None relevant available. Findings: The corpus callosum, pituitary gland clivus appear intact. Craniocervical junction appears preserved. There is no restricted diffusion. No intracranial hemorrhage. The ventricles are proportionate to the cerebral sulci. The 4th ventricle appears midline. The basal cisterns appear patent. No abnormal extra-axial fluid collection identified. There is no intracranial mass, abnormal mass-effect or midline shift identified. Major intracranial vascular flow voids appear grossly intact. Both globes are preserved. Qqvy-rq-[id number] paranasal sinus mucosal disease. Impression: No acute intracranial process. Dictated by Eldon Mclain MD @ 03/11/2025 9:45:37 AM (Electronically Signed)
[2025-03-11] MEDS: 0.9 % SODIUM CHLORIDE 1000 ml 1,000 ML IV (05:45)
== END 2025-03-11 10:15 | disposition home or self-care (01) ==
PROVIDERS: Family Medicine; Emergency Provider Family Medicine; PCP Family Medicine
DX: R20.0 Anesthesia of skin (principal); R53.1 Weakness; M25.512 Pain in left shoulder
CPT/HCPCS: 36415; 70551; 84484; 93005; 94761; 96360; 99284; 99285; J7030

== ENCOUNTER 2025-03-14 17:49 | Emergency (ER) | payer BC, SELFPAY ==
[2025-03-14] VITALS (15 sets, daily range): BP systolic 109–116; BP diastolic 69–81; PULSE 68–81; RESP 12–18; TEMP 36.6; O2SAT 96–100; BMI 41.9
--- OUTSIDE RECORDS SUMMARY | 2025-03-14 17:51 | XMS_ITS | Clinical Summary ---
Author Organization [facility] Address [address] [place] [address] Care Team Providers Care Computer Security Specialist Name Role Phone Huey Sandra DO Primary [...] for Pain. 5 Tablet 10/05/2021 10:12 AM BILLING AND ACCOUNTING STAFF ASSISTANT 1 Active Hospital, Clinic, or Other Facility [...] (07/21/2017): Added automatically from request for surgery [id number] Gallstones and inflammation of gallbladder without obstruction [...] on file Legal Sex Female 6:57 AM BILLING AND ACCOUNTING STAFF ASSISTANT Gender Identity Not on file Sexual Orientation [...] 9 9 HALLOR AN,BG DELMA Complications:None Delivery Location:[facility] 2018 Term 38w 6d 3.86 kg (8 lb 8 oz) M Local N Livin g Complications:None Comments:Born en caul Comments And one step daughter Last Filed Vital Signs Vital Sign Reading Time Taken Comments Blood Pressure 108/68 11/12/2021 3:18 PM BILLING AND ACCOUNTING STAFF ASSISTANT Pulse 79 10/05/2021 11:04 AM BILLING AND ACCOUNTING STAFF ASSISTANT Temperature 36.5 C (97.7 F) 10/05/2021 11:04 AM BILLING AND ACCOUNTING STAFF ASSISTANT Respiratory Rate 16 10/05/2021 11:0 4 AM BILLING AND ACCOUNTING STAFF ASSISTANT Oxygen Saturation 95% 10/05/2021 11: 04 AM BILLING AND ACCOUNTING STAFF ASSISTANT Inhaled Oxygen Concentration - - Weight 100.5 kg (221 lb 9.6 oz) 11/12/2021 3:18 PM BILLING AND ACCOUNTING STAFF ASSISTANT Height 160 cm (5' 3) 10/05/2021 6:25 AM BILLING AND ACCOUNTING STAFF ASSISTANT Body Mass Index 39.25 10/05/2021 6:25 AM BILLING AND ACCOUNTING STAFF ASSISTANT Plan of Treatment Health Maintenance Due Date [...] season) 2024 03/13/2021, 03/13/2021 (Completed outside of [facility]), 02/06/2021 Influenza Vaccine (Season Ended) 2025 08/28/2021, [...] Procedure Name Priority Date/Time Associated Diagnosis Comments CONVEYOR CONSOLE OPERATOR THIN PREP PAP SCREEN IMAGED Routine 02/02/2019 11:00 AM CDT Screening for malignant neoplasm of cervix ANTI HIV 1/2 Routine 01/03/2019 8:28 AM CDT Confirm cardiac activity using ultrasound (HC) ANTI HCV Routine 01/03/2019 8:28 AM CDT Confirm cardiac activity using ultrasound (HC) from Last 3 Months or Most Recently Relevant to Health Maintenance Results * CONVEYOR CONSOLE OPERATOR THIN PREP PAP SCREEN IMAGED (02/02/2019 11:00 AM CDT) Case Report Gynecologic Cytology Report Case: [id number] Authorizing Provider: Elsie Stiles DO Collected: 02/02/2019 1100 Ordering Location: [facility] Received: 02/02/2019 1318 [facility] First Screen: Scarlett Stoddard Specimen: CONVEYOR CONSOLE OPERATOR ThinPrep Vial Screening, Cervical 02/12/2019 2:25 PM CDT [facility] INTERPRETATION/ RESULT NEGATIVE FOR INTRAEPITHELIAL LESION OR MALIGNANCY (NIL) (none) 02/12/2019 2:25 PM CDT [facility] EN[facility]AL LABORAT[facility] at 1425 CDT SPECIMEN ADEQUACY Satisfactory for evaluation No endocervical component seen 02/12/2019 2:25 PM CDT [facility] HPV REQUEST HPV and PAP 02/12/2019 2:25 PM CDT [facility] [place] Date of LMP 02/12/2019 2:25 PM CDT [facility] [place] Last Pap Date 01/19/16 02/12/2019 2:25 PM CDT [facility] Last Pap Result NIL 9 2:25 PM CDT [facility] [place] Abnormal Pap or Lee Bx in last 5 years No 02/12/2019 2:25 PM CDT [facility] [place] Menstrual Status 02/12/2019 2:25 PM CDT [facility] [place] Lee Bx Done Today No 02/12/2019 2:25 PM CDT [facility] Additional Information None given 02/12/2019 2:25 PM CDT [facility] Automated Review Successful 02/12/2019 2:25 PM CDT [facility] Comment:Specimen processed s uccessfully by automated conduit mechanic device, [employer] Imaging System, [employer] ANCILLARY TESTING CONVEYOR CONSOLE OPERATOR HPV Ordered, Please see separate report 02/12/2019 2:25 PM CDT [facility] Note The pap test is a [...] Cytology is screened and interpreted at [facility] - [address], [place] [address] and [facility] - [address]; [place] [address] and [facility] - [address]; [place] [address] and [facility] [address]; [place] [address] 02/12/2019 2:25 PM CDT [facility] Other (Cervical) Non-Blood / Unknown 02/02/2019 11:00 AM CDT 02/02/2019 1:18 PM CDT Elsie Stiles DO PATHOLOGY/CYTOLOGY Final Resul t [facility] [address] [place] [address], [place] * ANTI HCV (01/03/2019 8:28 AM CDT) HEPATITIS C ANTIBODY Non-React boom Non-React boom 01/03/2019 2:20 PM CDT [facility] Comment:Antibodies to HCV no t detected; does not exclude the possibility of exposure to HCV. Blood BLOOD SPECIMEN / Unknown Venipuncture / Unknown 01/03/2019 8:28 AM CDT 01/03/2019 8:31 AM CDT us Elsie Stiles DO SEND OUTS Final Result Performing Organization Address City/[facility]/ZIP Co de Phone Number [facility] [address] [place] [address], * ANTI HIV 1/2 (01/03/2019 8:28 AM CDT) HIV-1/HIV-2 ANTIBODY Non-Reacti ve Non-Reacti ve 01/03/2019 2:22 PM CDT [facility] Comment:HIV-1 p24 and HIV-1/ HIV-2 Ab not detected. Blood BLOOD SPECIMEN / Unknown Venipuncture / Unknown 01/03/2019 8:28 AM CDT 01/03/2019 8:31 AM CDT Elsie Stiles SEND OUTS Final Result Performing Organization Address [facility] Co de Phone Number [facility] [address] [place] [address], from Last 3 Months or Most Recently Relevant to Health Maintenance Insurance [facility] NON-AL-ITS Advance Directives * Full Code (Latest Code [...] Code Status Discussion: Not Discussed Care Teams Computer Security Specialist Relationship Specialty Start Date End Date Huey Sandra DO PCP - General 04/15/09
--- OUTSIDE RECORDS SUMMARY | 2025-03-14 17:51 | XMS_ITS | Clinical Summary ---
Author Organization [facility] Address [address] [place] [address] Care Team Providers Care General Farmer Name Role Phone Coral Brito APRN, CNP Unavailable Coral Brito APRN, CNP Primary Care Provider [...] often do you attend chur ch or catholic services? Never 08/02/2023 Do you belong to any clubs o r organizations such as orthodoxy groups, unions, fraternal or athletic groups, or [...] Answer Date Recorded PHQ-2 Score 2 08/03/2023 [facility] Answer Date [...] in an abandoned building, in an overnight long-term, or couch-surfing.) Yes 08/02/2023 Are you worried [...] BILATERAL W/ ABIMAEL Routine 09/03/2023 12:38 PM AG SERVICE MANAGER Encounter for screening mammogram for breast cancer [...] MA Screen Bilateral w/Abimael (09/03/2023 12:38 PM AG SERVICE MANAGER) Anatomical Region Laterality Modality Breast Bilateral Mammography Impressions 09/05/2023 10:02 AM AG SERVICE MANAGER IMPRESSION: ACR BI-RADS Category 1: Negative RECOMMENDED FOLLOW-UP: Annual routine screening mammogram The results and recommendations of this examination will be communicated to the patient. Lewis Terrazas Narrative 09/05/2023 10:02 AM AG SERVICE MANAGER BILATERAL FULL FIELD DIGITAL SCREENING MAMMOGRAM WITH TOMOSYNTHESIS Performed on: 09/03/23 No comparisons were made when reading this study. Technique: This study was evaluated with the assistance of Computer-Aided Detection. Breast Tomosynthesis was used in interpretation. Findings: The breasts have scattered areas of fibroglandular density. There is no radiographic evidence of malignancy. us Mayte Keith PEOPLESOFT HR DEVELOPER IMG MAMMOGRAPHY ORDERABLES Fi nal Result * [...] - BLOOD ORDERABLES Final Result [facility] [place] [facility] [address], [address] [place] [address], [facility] [phone] * (ABNORMAL) Comprehensive metabolic panel (BMP + Alb, Alk Phos, ALT, AST, Total. Bili, TP) (08/03/2023 7:31 AM CDT) [facility] Sodium 139 135 - 145 mmol/L [...] CDT 08/03/2023 7:31 AM CDT Mayte Parker PEOPLESOFT HR DEVELOPER LAB - BLOOD ORDERABLES Final Result [facility] [place] [facility] [address], [address] [address], [facility] [phone] * HIV Antigen Antibody Combo (04/23/2022 7:26 AM CDT) [facility] HIV Antigen Antibody Combo Nonreactive Nonreactive 04/24/2022 3:52 PM CDT [facility]/PROT/EN DO Comment:HIV-1 p24 Ag & HIV-1 /HIV-2 Ab Not Detected Blood BLOOD SPECIMEN / Unknown Venipuncture / Unknown 04/23/2022 7:26 AM CDT 04/23/2022 7:26 AM CDT us Coral Brito APRN TICKETER LAB - BLOOD ORDERABLES Final Result [facility] C[facility]/PROT/ENDO Special[facility] Core/Prot/Endo [address] [facility], [address] [phone] * Hepatitis C Screen Reflex to HCV [...] newborns, infants, and children. Coral Brito APRN TICKETER LAB - BLOOD ORDERABLES Final Result [facility]PROT/ENDO [facility] Core/Prot/Endo [address] [facility], [address] [phone] * Pap Screen with HPV - recommended [...] component of this testing was completed at [facility] 04/27/2022 12:15 PM CDT [facility] Brushing CERVIX UTERI STRUCTURE / Unknown Non-blood Collection / Unknown 04/23/2022 7:12 AM CDT 04/23/2022 7:56 AM CDT Coral Brito APRN, CNP LAB - BEAKER AP Final R esult Performing Organization Address City/State/[facility] Co de Phone Number [facility] Specialty Lab [address] [facility], [address] [address], [facility] [phone] * HPV High Risk Types DNA Cervical (04/23/2022 7:12 AM CDT) Other HR HPV Negative Negative 04/29/2022 2:18 PM CDT [facility] HPV16 DNA Negative Negative 04/29/2022 2:18 PM CDT [facility] HPV18 DNA Negative Negative 04/29/2022 2:18 PM CDT [facility] FINAL DIAGNOSIS This patient's sample is negative for HPV DNA. This test was developed and its performance characteristics determined by the [facility], Molecular Diagnostics Laboratory. It has not been [...] [facility] Molecular Diagnostics [address] [facility], [address] [place] [address], [facility] [phone] from Last 3 Months or Most Recently Relevant to Health Maintenance [place] Care Teams General Farmer Relationship Specialty Start Date End Date Coral Brito APRN TICKETER [address] [place] [address] PCP - General Family Medicine 03/28/24 Coral Brito APRN TICKETER [address] [place] [address] Assigned PCP 01/31/24
--- OUTSIDE RECORDS SUMMARY | 2025-03-14 17:51 | XMS_ITS | Encounter Summary ---
Author Organization [place] Address [address] [place] [address]. [place] [address] Care Team Providers Care Scheduling Analyst Name Role Phone [facility] Primary Care Provider Mayte Parker NP Unavailable Unavailable Coral Brito APRN LOCK ASSEMBLER Unavailable [phone] Coral Brito APRN LOCK ASSEMBLER Primary Care Provider Encounter Details Date Type Department Care Team (Late st Contact Info) Description 01/20/2024 MyC Medical Advice [address] [address] Patricia Crabtree MA Social History [...] often do you attend chur ch or church services? Never 08/02/2023 Do you belong to any clubs o r organizations such as quaker groups, unions, fraternal or athletic groups, or [...] Answer Date Recorded PHQ-2 Score 2 08/03/2023 [facility] [place] [facility]at ional [facility] - Occupational Stress [...] in an abandoned building, in an overnight fpc, or couch-surfing.) Yes 08/02/2023 Are you worried [...] documented as of this encounter Care Teams Scheduling Analyst Relationship Specialty Start Date End Date Clinic - [address] [address] PCP - General 04/20/22 03/27/24 Coral Brito APRN LOCK ASSEMBLER [address] [place] [phone] PCP - General Family Medicine 03/28/24 Mayte Parker NP Assigned PCP 11/03/23 01/30/24 Coral Brito APRN LOCK ASSEMBLER [address] [place] [id number] Assigned PCP 01/31/24 documented as of this encounter
--- NOTE | 2025-03-14 18:02 | ED_ITS ---
HPI - General Adult General Date Seen: 03/14/25 Chief complaint: Unspecified Complaint, Adult Stated complaint: L side numbness, head/arm Time Seen by Provider: 03/14/25 18:02 History of Present Illness HPI narrative: 39-year-old female with a past medical history of paresthesias, dizziness, tremor, anxiety depression, gestational diabetes, endometriosis status post hysterectomy, elevated BMI. She is currently on sertraline, estradiol, vitamins, and ibuprofen. Patient also reports that she had an EKG done in her PCP clinic last Tuesday on and apparently that EKG showed normal. She was seen in the ER 3 days ago on 03/11 for numbness affecting her left face and left arm. While in the ER she had a brain MRI that showed no into acute intracranial process. EKG showed sinus rhythm with sinus arrhythmia. Computer interpretation suggest possible left atrial enlargement. There was no ST segment elevation or depression. Per medical record she was seen on 03/[address] Tonya melo in order to establish care and get a checkup. She had been having brief episodes of dizziness lasting up to 30 seconds and also intermittent tremor of her hands. Records also indicate she was having unexplained neurological symptoms and tremors in her hands and new onset left face and arm numbness. She was given a referral to Neurology. Also were going to get an echo to look for explanation for her possible palpitations. Patient notes that her numbness for started early Tuesday morning. She woke at about 3:00 a.m. in the morning with numbness affecting her left face (forehead, cheek, chin) and her left neck and left arm this specially down the upper arm. She came to the ER and had workup with negative a me the MRI and was she was discharged home. She still had the numbness in the ER but it did go away for a while on Tuesday afternoon. Numbness came back on Tuesday at. Since Tuesday she has had intermittent other symptoms including episodes of numbness sometimes affecting her left arm and sometimes especially going from the left to the right side of her forehead. Along with this she has had at least 5 episodes where she gets off balance or dizzy that started since yesterday on Tuesday. She describes the episodes is as if she is being thrown backwards like riding a rapidly accelerating roller coaster. These episodes are brief. She also had 1 episode of chest pain while she was in the car on the way to the ER She has also had in her episodes of pain where she gets pain in her left face and down her left neck into her left shoulder by the clavicle and down the arm. No rash. No redness. She denies any other psychosocial stressors. She is here with her who seems polite and supportive. They interact well together. She denies any other definite palpitations. She did has had some chest pains occasionally. She has no history of heart disease. Vision has been normal. Hearing is been normal. No numbness or weakness or tingling in her legs. No abdominal pain. No cough. No trouble breathing. No swelling in her legs. Related Data Home Medications ?Medication ?Instructions ?Recorded ?Confirmed vitamin B complex 1 tab PO QDAY 02/01/2403/14 Previous Rx's ?Medication ?Instructions ?Recorded estradiol 0.1 mg/24 hr semiweekly 1 patch transdermal 2XW #24 ea 05/16/24 transdermal patch ibuprofen 600 mg tablet 600 mg PO QID PRN #30 tabs 0 05/16/24 sertraline 50 mg tablet 50 mg PO QDAY #90 tabs 06/04 Allergies Allergy/AdvReac Type Severity Reaction Status Date / Time No Known Drug Allergies Allergy Verified 03/12/25 08:32 [facility] Medical History Gestational diabetes ?O24.419 - Gestational diabetes mellitus in , unspecified control (ICD-10) History of kidney stones ?Z87.442 - Personal history of urinary calculi (ICD-10) Body mass index [BMI] 40.0-44.9, adult ?Z68.41 - Body mass index [BMI] 40.0-44.9, adult (ICD-10) Anxiety and depression ?F41.9 - Anxiety disorder, unspecified (ICD-10) ?F32.A - Depression, unspecified (ICD-10) History of gestational diabetes ?Z86.32 - Personal history of gestational diabetes (ICD-10) Chronic left hip pain ?M25.552 - Pain in left hip (ICD-10) ?G89.29 - Other chronic pain (ICD-10) Endometriosis determined by laparoscopy ?N80.9 - Endometriosis, unspecified (ICD-10) Surgical History History of vaginal delivery (2017) Status post laparoscopic hysterectomy (05/16/24) ?Z90.710 - Acquired absence of both cervix and uterus (ICD-10) Status post laparoscopic cholecystectomy (~2016) ?Z90.49 - Acquired absence of other specified parts of digestive tract (ICD- 10) S/P laparoscopy with lysis of adhesions ?Z98.890 - Other specified postprocedural states (ICD-10) Status post right foot surgery (~01/2003) ?Z98.890 - Other specified postprocedural states (ICD-10) Family History Alcohol dependence Paternal Grandfather Stented coronary artery Mother, Onset Age: 62 Throat cancer Father Diabetes Aunt Hyperthyroidism Aunt Hypothyroid Mother Aunt Breast cancer Maternal Grandmother, Onset Age: 75 Social History Narrative: , works as [employer] 2 children, lives in [place] 1 week ago started walking 2 miles daily Lifetime nonsmoker Rare alcohol use No drug use Cis-gender, heterosexual woman Relationship status: . 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 Tobacco: No, lifetime nonsmoker E-cigarettes: No Alcohol: Yes: 2 servings/3 months Illicit/recreational drugs: No Safety concerns at home or work: No Dietary restriction(s): None Exercise: Yes, cardio 2 times per week. What is your current living situation?: I presently have a place to live Problems where you live: no known problems In the past 12 months, utilities in danger of being shut off: no In past 12 months, lack of transportation kept you from medical appts, meetings, work, or getting things needed for daily living: no In the past 12 mos, have been you worried that your food would run out before you had money to buy more?: never true In the past 12 mos, the food you bought just didn't last and you didn't have money to buy more?: never true Smoking Status: Never smoker Second hand tobacco smoke exposure: No How often do you have a drink containing alcohol: monthly or less How many standard drinks containing alcohol do you have on a typical day: 3 or 4 How often do you have six or more drinks on one occasion: Never AUDIT-C Alcohol total score: 2 Non-prescribed substance use: denies use Caffeine: Yes How often does anyone, including family, friends and others, physically hurt you : never How often does anyone, including family, friends and others, insult or talk down to you: never How often does anyone, including family, friends and others, threaten you with harm: never How often does anyone, including family, friends and others, scream or curse at you: never Exam Narrative: Exam Narrative: Constitutional: Appears well-developed and well-nourished. Alert. Conversant. Non toxic. HENT: Head: Atraumatic. Nose: Nose normal. Mouth/Throat: Oral mucosa is clear and moist. no trismus. Pharynx normal. Tonsils symmetric. No tonsillar enlargement, erythema, or exudate. Eyes: Conjunctivae normal. EOM normal. Pupils equal, round, and reactive to light. No scleral icterus. Neck: Normal range of motion. Neck supple. No tracheal deviation present. No carotid bruit. Cardiovascular: Normal rate, regular rhythm. No gallop. No friction rub. No murmur heard. Symmetric radial artery pulses Pulmonary/Chest: Effort normal. No stridor. No respiratory distress. No wheezes. No rales. No rhonchi . No tenderness. Abdominal: Soft. Bowel sounds normal. No distension. No mass. No tenderness. No rebound. No guarding. Musculoskeletal: RUE: Normal range of motion. No tenderness. No deformity LUE: Normal range of motion. No tenderness. No deformity RLE: Normal range of motion. No edema. No tenderness. No deformity LLE: Normal range of motion. No edema. No tenderness. No deformity Lymph: No cervical adenopathy. Neurological: Mental status normal. Attention normal. Alert and oriented x3. GCS 15. Memory normal. Speech fluent. Cognition normal. Cranial Nerves intact II-XII except I did not formally test gag or visual acuity. EOMI. Palate elevates symmetrically and tongue protrudes in the midline. Strength: 5/5 trapezius on the right and left 5/5 deltoid on the right and left 5/5 biceps on the right and left 5/5 triceps on the right and left 5/5 job placement specialist on the right and left 5/5 thumb opposition on the right and le ft 5/5 finger abduction on the right and le ft 5/5 hip flexors (L3) on the right and le ft 5/5 quadriceps (L4) on the right and lef t 5/5 tibialis anterior on the right and l eft 5/5 EHL (L5) on the right and left 5/5 gastrocnemius (S1) on the right and left 5/5 hamstring on the right and left Sensation intact to light touch in both upper extremities (C4-T1) Sensation intact to light touch in Both lower extremities (L4-S1). Finger to nose and coordination normal. Gait normal. While I was doing her exam she says she had 1 of the episodes where she felt off balance. She closed her eyes and some hyperventilating for just a minute. This occurred while she was sitting up in bed. It was not associated with head turning, position change, or other clear trigger. There is no focal seizure activity other than she felt a little bit of twitching of her left eyelid. Skin: Skin is warm and dry. No rash noted. No pallor. Normal capillary refill. Psychiatric: Normal mood. Seems mildly anxious. Denies any stress or anxiety at home. Const: Vital Signs, click to edit/add: Vital Signs - 24 hr 03/14/25 17:54 03/14/25 20:37 03/14/25 20:38 Temperature 97.9 F Pulse Rate 79 73 Pulse Rate [Pulse Oximeter] 70 Respiratory Rate 18 14 Blood Pressure 109/74 Blood Pressure [Ri t Upper Arm] 116/81 Pulse Oximetry 96 100 100 Oxygen Delivery Me thod Room Air Room Air 03/14/25 20:45 03/14/25 21:00 03/14/25 21:15 Temperature Pulse Rate 72 68 76 Pulse Rate [Pulse Oximeter] Respiratory Rate 12 16 Blood Pressure Blood Pressure [Ri t Upper Arm] Pulse Oximetry 100 100 100 Oxygen Delivery Me thod 03/14/25 21:30 03/14/25 21:59 03/14/25 22:00 Temperature Pulse Rate 79 74 71 Pulse Rate [Pulse Oximeter] Respiratory Rate 16 13 Blood Pressure Blood Pressure [Ri t Upper Arm] Pulse Oximetry 98 98 98 Oxygen Delivery Me thod 03/14/25 22:15 03/14/25 22:30 03/14/25 22:45 Temperature Pulse Rate 80 81 Pulse Rate [Pulse Oximeter] Respiratory Rate 12 13 Blood Pressure Blood Pressure [Ri ght Upper Arm] Pulse Oximetry 97 98 Oxygen Delivery Me thod 03/14/25 23:00 03/14/25 23:15 03/14/25 23:28 Temperature Pulse Rate 78 81 Pulse Rate [Pulse Oximeter] 72 Respiratory Rate 17 18 Blood Pressure Blood Pressure [Ri ght Upper Arm] 110/69 Pulse Oximetry 97 96 Oxygen Delivery Me thod Course Course ED Course: Recheck-nurses report that patient now complains of whole body tingling. I recheck the patient. She is with her . She is conversant. No seizure activity. Suspect possible anxiety. Patient agrees try oral Ativan Reevaluation(s) Reevaluation #1: Recheck-after Ativan patient a little bit more sleepy. notes that she is having spells where she has episodes where she just cannot open either of her eyes. No facial twitching but sometimes she will also have twitching of her bilateral thighs during these episodes. She has had 5 of them since receiving the Ativan in the last about 3 minutes each and then resolved. As I recheck the patient had another event with her eyes closed but no seizure activity. Very flat affect. As I open her eyes initially her eyelids seem flaccid in the seem more tense. Gaze is conjugate LA open her eyes. Pupils are reactive. I do not see any nystagmus. No other facial twitching or lip-smacking. She is not having any tremor of her arms or legs. After the I have an happens. She did have a few brief non seizure-like fasciculations in her thigh muscles but these were bilateral and brief. Not really consistent with a generalized tonic-clonic seizure and mental status was maintained throughout. Discussed with neurology from [facility], Dr. Andersen. We discussed the patient's migratory paresthesias starting 1st in her left face and left upper arm and now sometimes affecting both sides of her face. We also discussed the patient's episodes where her eyes close. Dr. Andersen feels that these are probably not epileptic but would be reasonable to arrange an outpatient (not inpatient) evaluation with Neurology for EEG. Dr. Andersen recommends referral to [place] [facility]. Reevaluation #2: Recheck discussed again with the patient her . They were comfortable discharging to home. They would like to try the calling [place] [facility] and they will call him tomorrow. Precautions for return to the ER reviewed. Vital Signs Vital signs: Initial Vital Signs Temperature 97.9 F 03/14/25 17:54 Temperature Source Temporal Artery Scan 03/14/25 17:54 Pulse Rate 70 03/14/25 17:54 Pulse Rhythm Regular 03/14/25 17:54 Respiratory Rate 18 03/14/25 17:54 Blood Pressure 116/81 03/14/25 17:54 Blood Pressure Mean 92 03/14/25 17:54 Blood Pressure Position Sitting 03/14/25 17:54 Pulse Oximetry 96 03/14/25 17:54 Oxygen Delivery Method Room Air 03/14/25 17:54 Vital Signs Temperature 97.9 F 03/14/25 17:54 Pulse Rate 70 03/14/25 17:54 Respiratory Rate 18 03/14/25 17:54 Blood Pressure 116/81 03/14/25 17:54 Pulse Oximetry 96 03/14/25 17:54 Oxygen Delivery Method Room Air 03/14/25 17:54 Temperature 97.9 F 03/14/25 17:54 Pulse Rate 72 03/14/25 23:28 Respiratory Rate 18 03/14/25 23:28 Blood Pressure 110/69 03/14/25 23:28 Pulse Oximetry 96 03/14/25 23:15 Oxygen Delivery Method Room Air 03/14/25 20:37 Medications Administered Medications: Discontinued Medications Generic Name Dose Route Start Last Admin Trade Name Freq PRN Reason Stop Dose Admin Sodium Chloride 1,000 mls @ 1,000 mls/hr 03/14/25 18:30 03/14/25 21:14 0.9 % Sodium Chloride 1000 Ml IV 03/14/25 19:29 Infused .Q1H SHERI Infusion Diphenhydramine HCl 25 mg/ 100.5 mls @ 301.5 mls/hr 03/14/25 18:20 03/14/25 20:20 Sodium Chloride IVPB 03/14/25 18:21 Infused ONCE ONE Infusion Ketorolac Tromethamine 15 mg 03/14/25 18:20 03/14/25 19:57 Ketorolac 15 Mg/Ml Inj IVP 03/14/25 18:21 15 mg ONCE ONE Administration Lorazepam 1 mg 03/14/25 21:42 03/14/25 21:51 Lorazepam 1 Mg Tablet PO 03/14/25 21:43 1 mg ONCE ONE Administration Medical Decision Making MDM Narrative Medical decision making narrative: Pleasant 39-year-old female presenting to the ER with her beatrice. She has multiple concerns including initially paresthesias on her left face and left arm. Also subsequently paresthesias affecting both sides of her face and also sometimes pain from her left chest up the left neck to her face. She has also had spells where she is seems unable to open her eyelids and sometimes has unusual twitches in her body. Differential is broad. With the left neck and head pain and concerned about potential cervical artery dissection that could have been causing her symptoms. We did send the patient for brain CT which is normal and also CT angio of her head and neck which are normal based on preliminary reports. No evidence for carotid dissection. With her chest pain EKG obtained shows no ischemia. Troponin is undetectable. No arrhythmia. Laboratory workup shows normal thyroid. Lab workup shows mild leukocytosis with a white count of 11.53 but otherwise normal cbc. Electrolytes are normal. Blood sugars normal. LFTs are mildly abnormal with an ALT of 64 an AST of 43. These are essentially unchanged compared to her labs from clinic last week. She is not having any right upper quadrant abdominal pain or other symptoms of belly pain at this time. Alk-phos and bilirubin are normal. While she was here in the ER she had episodes where she had some fasciculations and twitching is in the muscles of her thigh and also a couple of unusual events where she felt like she was unable to open her eyelids. It was able to observe 1 of these events and there was not any clear seizure-like activity on her facial muscles or eyelids and since the it then was bilateral and she had preserved consciousness throughout, it seems to be unlikely to represent a partial seizure. Discussed with neurology who would recommend that would be appropriate for to have outpatient Neurology follow-up in a in epilepsy clinic to make sure she gets an EEG. Differential would also include possible panic or anxiety. We administered Ativan with partial improvement but not resolution. She still had 1 of her eyelid episodes after receiving Ativan. At this point she is comfortable discharging home with her . Precautions for return to the ER and need for follow-up reviewed. Lab Data Labs: Lab Results 03/14/25 03/14/25 Range/Units 18:45 19:25 WBC 11.53 H (4.50-11.00) K/uL RBC 4.75 (4.00-5.20) m/uL Hgb 13.2 (12.0-16.0) gm/dL Hct 40.6 (33.0-51.0) % MCV 86 (80-100) fL MCH 28 (26-34) pg MCHC 33 (32-36) gm/dL RDW Coeff of Robin 13.0 (11.5-15.5) % Plt Count 249 (140-440) K/uL Neut % (Auto) 59.4 (42.0-72.0) % Lymph % (Auto) 28.9 (20-44) % Hutchinson % (Auto) 5.9 (0.0-11.0) % Eos % (Auto) 5.2 (0.0-7.0) % Baso % (Auto) 0.3 (0.0-3.0) % Neut # (Auto) 6.80 (1.7-7.0) K/uL Lymph # (Auto) 3.30 H (0.90-2.90) K/uL Hutchinson # (Auto) 0.70 (0.00-0.90) K/UL Eos # (Auto) 0.60 H (0.00-0.50) K/uL Baso # (Auto) 0.00 (0.00-0.30) K/uL Abs Immat Gran (auto) 0.00 (0.00-0.30) K/uL Imm/Tot Granulo (auto) 0.3 % Sodium 138 (135-149) mmol/L Potassium 4.3 (3.6-5.1) mmol/L Chloride 100 (96-114) mmol/L Carbon Dioxide 29 (20-32) mmol/L Anion Gap 9 (7-15) mEq/L BUN 10 (5-24) mg/dL Creatinine 0.7 (0.5-1.5) mg/dL Estimated Creat Clear 91.33 Estimated GFR 111 ml/min Glucose 123 H (60-115) mg/dL Lactate 2.7 H (0.5-1.9) mmol/L Calcium 9.3 (8.4-10.6) mg/dL Magnesium 2.0 (1.5-2.6) mg/dL Total Bilirubin 0.4 (0.1-1.5) mg/dL AST 43 H (12-35) U/L ALT 64 H (4-35) U/L Alkaline Phosphatase 71 (40-150) U/L Troponin I < 0.01 (0.01-0.04) ng/mL Total Protein 8.2 (6.0-8.3) g/dL Albumin 4.8 (3.3-5.0) g/dL TSH 3.200 (0.270-4.200) uIU/mL Urine Color Yellow (Yellow) Urine Appearance Clear (Clear) Urine pH 6.5 (5.0-8.5) Ur Specific Jackpot <= 1.005 (1.000-1.030) Urine Protein Negative (Negative) Urine Glucose (UA) Negative (Negative) Urine Ketones Negative (Negative) Urine Blood Negative (Negative) Urine Nitrite Negative (Negative) Urine Bilirubin Negative (Negative) Urine Urobilinogen 0.2 (0.2-1.0) Ur Leukocyte Esterase Negative (Negative) Urine RBC 0-2 (0-2) Urine WBC 0-2 (0-5) Ur Squamous Epith Cells None (None-Few) Urine Bacteria None (None) Imaging Data CT scan - head: Attestation: I have reviewed the pertinent imaging results. Radiologist's impression: IMPRESSION: 1. No acute intracranial abnormality. 2. Moderate mucosal thickening throughout the ethmoid and maxillary sinuses, raising the possibility of sinusitis as an etiology for headaches. CTA Head and NEck: Attestation: I have reviewed the pertinent imaging results. Radiologist's impression: Preliminary Report: Unremarkable CTA of the head and neck. ECG Data Attestation: I personally reviewed and interpreted this ECG as follows: Interpretation: Normal sinus rhythm Rate: 79 [place]: 166 QRS axis: Normal axis ST segment/T wave: No pathologic Q-waves. No ST segment elevation or depression. Nonspecific T-wave flattening in leads V1 and V2. QTc: 440 Discharge Plan Discharge Clinical Impression: Paresthesias, Dizziness, Muscle twitching Patient Disposition: Home, Self-Care Condition: Stable Instructions: Paresthesia (ED), Dizziness (ED), Tremors (ED) Additional Instructions: As we discussed, please return to the ER right away if you have any worsening or changing symptoms. Please follow-up with your primary care provider within the next couple of days for recheck. You could call [place] [facility] to schedule an appointment. Call [phone] to schedule a if appointment for recheck. It also could be smart to call the [facility] to see if they can move up your appointment to a time earlier than May. Prescriptions: No Action vitamin B complex Tablet 1 tab PO QDAY sertraline 50 mg tablet 50 mg PO QDAY Qty: 90 3RF estradiol 0.1 mg/24 hr patch semiweekly 1 patch transdermal 2XW Qty: 24 3RF Rx Instructions: apply 1 patch for 3 days alternating with 1 patch for 4 days each week. ibuprofen 600 mg tablet 600 mg PO QID PRNQty: 30 0RF Follow Up/Referrals: Amarilis Duron MD [Primary Care Provider, Family Practice] Stand Alone Forms: [employer] Info Instructions
--- NOTE | 2025-03-14 18:21 | CRLHL7_ITS ---
For Patients: As a result of the Century Cures Act, medical imaging exams and procedure reports are released immediately into your electronic medical record. You may view this report before your referring provider. If you have questions, please contact your health care provider. CLINICAL HISTORY: Left-sided headache and numbness; dizziness. TECHNIQUE: Standard helical CT image acquisition through the head following the administration of intravenous contrast was performed. 3D and MIP reconstructions were performed at a separate workstation and permanently archived. COMPARISON: None available. FINDINGS: No intracranial proximal large vessel occlusion or flow-limiting luminal stenosis. No evidence of cerebral aneurysm. No findings to suggest an arterial-venous shunting lesion. The major dural venous sinuses and deep venous system are patent. IMPRESSION: No intracranial proximal large vessel occlusion, flow-limiting luminal stenosis, or cerebral aneurysm. Please note that all CT scans at this facility use dose modulation, iterative reconstruction, and/or weight-based dosing when appropriate to reduce radiation dose to as low as reasonably achievable. Dictated by Abe Choi MD @ 03/15/2025 11:05:17 AM (Electronically Signed)
--- NOTE | 2025-03-14 18:21 | CRLHL7_ITS ---
For Patients: As a result of the Century Cures Act, medical imaging exams and procedure reports are released immediately into your electronic medical record. You may view this report before your referring provider. If you have questions, please contact your health care provider. INDICATION: Dizziness, paresthesias, left-sided headache and anterior neck pain. TECHNIQUE: Noncontrast CT of the head with multiplanar reconstruction utilizing bone and soft tissue algorithms. COMPARISON: Correlated with MR brain dated 03/11/2025. FINDINGS: No acute intracranial hemorrhage. The wolfe-white matter interface is preserved. The ventricles are normal in size. No abnormal extra-axial fluid collection is identified. Normal calvarium and skull base. Unremarkable orbits. Lobulated mucosal thickening throughout the ethmoid and maxillary sinuses. IMPRESSION: 1. No acute intracranial abnormality. 2. Moderate mucosal thickening throughout the ethmoid and maxillary sinuses, raising the possibility of sinusitis as an etiology for headaches. Please note that all CT scans at this facility use dose modulation, iterative reconstruction, and/or weight-based dosing when appropriate to reduce radiation dose to as low as reasonably achievable. Dictated by Tru Moctezuma MD @ 03/14/2025 7:09:53 PM (Electronically Signed)
--- NOTE | 2025-03-14 18:21 | CRLHL7_ITS ---
For Patients: As a result of the Century Cures Act, medical imaging exams and procedure reports are released immediately into your electronic medical record. You may view this report before your referring provider. If you have questions, please contact your health care provider. CLINICAL HISTORY: Left-sided headache and numbness; dizziness. TECHNIQUE: Standard helical CT image acquisition through the neck was performed after intravenous contrast bolus enhancement. 3D and MIP reconstructions were performed at a separate workstation and permanently archived. COMPARISON: None available. FINDINGS: The origins of the great vessels from the aortic arch are patent. The common carotid arteries are patent. No significant luminal stenoses of the proximal ICAs by NASCET criteria. The more distal cervical segments of the ICAs are patent. The origins and cervical segments of the vertebral arteries are patent. IMPRESSION: Patent cervical arterial vasculature without hemodynamically significant luminal stenosis. Please note that all CT scans at this facility use dose modulation, iterative reconstruction, and/or weight-based dosing when appropriate to reduce radiation dose to as low as reasonably achievable. Dictated by Abe Choi MD @ 03/15/2025 11:02:40 AM (Electronically Signed)
[2025-03-14 18:49] LABS: Basophils Percent Auto 0.3 % (0.0-3.0); Eosinophils Percent Auto 5.2 % (0.0-7.0); Hematocrit 40.6 % (33.0-51.0); Hemoglobin* 13.2 gm/dL (12.0-16.0); Immature Granulocytes Pct Auto 0.3 %; Lactate* 2.7 mmol/L (0.5-1.9); Lymphocytes Percent Auto 28.9 % (20-44); Mean Corpuscular HGB Conc 33 gm/dL (32-36); Mean Corpuscular Hemoglobin 28 pg (26-34); Mean Corpuscular Volume 86 fL (80-100); Monocytes Percent Auto 5.9 % (0.0-11.0); Neutrophils Percent Auto 59.4 % (42.0-72.0); Platelet Count* 249 K/uL (140-440); Red Blood Count 4.75 m/uL (4.00-5.20); White Blood Count* 11.53 K/uL (4.50-11.00)
[2025-03-14 18:57] LABS: Slide Review Reflex No
[2025-03-14 19:10] LABS: Albumin* 4.8 g/dL (3.3-5.0); Chloride* 100 mmol/L (96-114); Sodium* 138 mmol/L (135-149)
[2025-03-14 19:11] LABS: Potassium* 4.3 mmol/L (3.6-5.1)
[2025-03-14 19:13] LABS: Alanine Aminotransferase* 64 U/L (4-35); Alkaline Phosphatase* 71 U/L (40-150); Anion Gap 9 mEq/L (7-15); Aspartate Amino Transferase* 43 U/L (12-35); Bilirubin Total* 0.4 mg/dL (0.1-1.5); Blood Urea Nitrogen* 10 mg/dL (5-24); Carbon Dioxide* 29 mmol/L (20-32); Creatinine* 0.7 mg/dL (0.5-1.5); Est. Creatinine Clearance* 91.33; Estimated Glomerular Filt Rate 111 ml/min
[2025-03-14 19:14] LABS: Calcium* 9.3 mg/dL (8.4-10.6); Glucose* 123 mg/dL (60-115); Total Protein* 8.2 g/dL (6.0-8.3)
[2025-03-14 19:31] LABS: Appearance Urine Clear (Clear); Bilirubin Urine Negative (Negative); Blood Urine Negative (Negative); Color Urine Yellow (Yellow); Glucose Urine Negative (Negative); Ketones Urine Negative (Negative); Leukocyte Esterase Urine Negative (Negative); Nitrite Urine Negative (Negative); Protein Urine Negative (Negative); Specific Gravity Urine <= 1.005 (1.000-1.030); Urobilinogen Urine 0.2 (0.2-1.0); pH Urine 6.5 (5.0-8.5)
[2025-03-14 19:40] LABS: Troponin I* < 0.01 ng/mL (0.01-0.04)
[2025-03-14] MEDS: diphenhydrAMINE 25 MG in 0.9 % SODIUM CHLORIDE 100 ml 100 ML 301.5 MG IVPB (19:56)
[2025-03-14] MEDS: 0.9 % SODIUM CHLORIDE 1000 ml 1,000 ML IV (19:56)
[2025-03-14] MEDS: KETOROLAC 15 MG/ML inj IVP (19:57)
[2025-03-14 19:59] LABS: RBC Urine 0-2 (0-2); WBC Urine 0-2 (0-5)
[2025-03-14] MEDS: LORazepam 1 MG TABLET PO (21:51)
== END 2025-03-14 23:29 | disposition home or self-care (01) ==
PROVIDERS: Emergency Provider Emergency Medicine; PCP Family Medicine
DX: R20.2 Paresthesia of skin (principal); R42 Dizziness and giddiness; M62.838 Other muscle spasm; Z79.899 Other long term (current) drug therapy
CPT/HCPCS: 36415; 70450; 70496; 70498; 80050; 80053; 81001; 83605; 83735; 84443; 84484; 85025; 93005; 96365; 96375; 99284; 99285; A9270; J1200; J1885; J7030; Q9967

== ENCOUNTER 2025-03-22 07:52 | Outpatient (CLI) | payer BC, SELFPAY | END 2025-03-22 07:53 | disposition home or self-care (01) | LOC: RAD 07:52 | PROVIDERS: PCP Family Medicine; Visit Provider Family Medicine | DX: R00.2 Palpitations (principal); R94.31 Abnormal electrocardiogram [ECG] [EKG] | CPT/HCPCS: 93306 ==

== ENCOUNTER 2025-06-25 18:02 | Outpatient (CLI) | payer BC, SELFPAY ==
--- NOTE | 2025-06-25 18:20 | CRLHL7_ITS ---
For Patients: As a result of the Century Cures Act, medical imaging exams and procedure reports are released immediately into your electronic medical record. You may view this report before your referring provider. If you have questions, please contact your health care provider. INDICATION: BILATERAL SCREENING MAMMOGRAM, ASYMPTOMATIC 40 Y/O FEMALE COMPARISON: 09/06/2023 TECHNIQUE: Digital mammogram in CC and MLO projections including computer-aided detection (CAD) and tomosynthesis. BREAST COMPOSITION: The breasts are almost entirely fatty. FINDINGS: No suspicious findings. ASSESSMENT: BI-RADS 1 Negative RECOMMENDATION: Annual screening mammogram. A lay language report of this examination will be provided to the patient. Dictated by: Jose Santos MD @ 06/27/2025 13:00:52 (Electronically Signed)
== END 2025-06-25 18:03 | disposition home or self-care (01) ==
LOC: MAMMO 18:02
PROVIDERS: PCP Family Medicine; Visit Provider Family Medicine
DX: Z12.31 Encounter for screening mammogram for malignant neoplasm of breast (principal)
CPT/HCPCS: 77063; 77067